=== PATIENT | male | born 1955 | race Caucasian/White ===

== ENCOUNTER → 2022-06-12 10:37 | Outpatient (CLI) | payer BC, MEDICARE, SELFPAY ==
[2022-06-12 19:37] LABS: Basophils # 0.1 K/mm3 (0-0.2); Basophils % 0.9 % (0.1-2.0); Eosinophils # 0.1 K/mm3 (0.0-0.4); Eosinophils % 1.2 % (0.1-12.0); Hematocrit 45.8 % (42.0-52.0); Hemoglobin 14.6 g/dL (14.1-18.0); Lymphocytes # 0.9 K/mm3 (0.7-4.5); Lymphocytes % 10.9 % (10-50); Mean Corpuscular HGB Conc 31.8 g/dL (31.8-35.4); Mean Corpuscular Hemoglobin 29.7 pg (27.0-31.2); Mean Corpuscular Volume 93.3 fl (80-94); Mean Platelet Volume 8.7 fl (7.4-10.4); Monocytes # 0.6 K/mm3 (0.1-1.0); Monocytes % 7.4 % (1.7-9.3); Neutrophils # 6.3 K/mm3 (1.8-7.8); Neutrophils % 79.5 % (37.0-80.0); Platelet Count 349 K/mm3 (142-424); Red Cell Distribution Width 13.9 % (11.5-17.5); White Blood Count 7.9 K/mm3 (4.8-10.8)
[2022-06-12 19:50] LABS: Blood Urea Nitrogen 20 mg/dl (9-20); Calcium 8.8 mg/dl (8.4-10.2); Carbon Dioxide 26 mmol/L (22.0-30.0); Chloride 105 mmol/L (98-107); Chol/HDL Ratio 4.2 (1-3.5); Cholesterol 135 mg/dl (140-200); Estimated Glomerular Filt Rate 75 ml/min (>60); GFR (African American) 91 ML/MIN (>60); Glucose 95 mg/dl (74-100); HDL Cholesterol 32 mg/dl (40-60); Sodium 140 mmol/L (136-145); Triglycerides 101 mg/dl (30-150); Uric Acid 4.6 mg/dl (3.5-8.5); VLDL Cholesterol 20 mg/dL (0-40)
[2022-06-12 20:36] LABS: Creatinine,Urine Random 201 mg/dL (Not Estab.); Microalbumin/Creatinine Ratio 72.6
== END ==
LOC: LAB.DROPOF 06-25 10:38
PROVIDERS: PCP Family Medicine; Visit Provider Family Medicine
DX: I10 Essential (primary) hypertension (principal); F17.200 Nicotine dependence, unspecified, uncomplicated
CPT/HCPCS: 80048; 80061; 82043; 82570; 84550; 85025

== ENCOUNTER 2022-11-25 14:09 | Emergency (ER) | payer BC, MEDICARE, SELFPAY ==
[2022-11-25 14:10] VITALS: BP 133/97; PULSE 87; RESP 16; TEMP 36.6; O2SAT 98; BMI 25.8
[2022-11-25 14:58] LABS: Microscopic, Urine URINE MICROSCOPIC (MICROSCOPIC)
[2022-11-25 15:00] VITALS: BP 173/98; PULSE 79; O2SAT 97
--- NOTE | 2022-11-25 15:02 | CT_ITS ---
FINAL REPORT TECHNIQUE: After the administration of intravenous contrast, axial images were obtained through the abdomen and pelvis by computed tomography. This study was performed with technique to keep radiation doses as low as reasonably achievable, (ALARA). Individualized dose reduction techniques using automated exposure control or adjustment of the MA and/or KV according to the patient's size were employed. CLINICAL HISTORY: LUQ pain FINDINGS: Abdomen: The lung bases demonstrate mild atelectasis. The liver is normal in size and attenuation. Gallbladder is moderately distended. The spleen is unremarkable. The adrenals are normal. The pancreas is unremarkable. The kidneys enhance appropriately. There are multiple left renal cysts measuring up to 4.4 cm. The aorta is normal in caliber. There is no free fluid or adenopathy. Pelvis: The appendix is not identified. There are no secondary signs of appendicitis. There is a moderate to large amount of stool throughout the colon. The prostate is enlarged. There is sigmoid diverticulosis without evidence of diverticulitis. The urinary bladder is unremarkable. There is no free fluid or adenopathy. IMPRESSION: Moderate to large amount of stool throughout the colon. Enlarged prostate. Reviewed, Interpreted and Dictated by Jin Gray III, MD Transcribed by Debbie Gladamez Authenticated and [facility]
[2022-11-25 15:05] LABS: Basophils # 0.1 K/mm3 (0-0.2); Basophils % 0.6 % (0.1-2.0); Eosinophils # 0.1 K/mm3 (0.0-0.4); Eosinophils % 1.1 % (0.1-12.0); Hemoglobin 13.8 g/dL (14.1-18.0); Lymphocytes # 0.8 K/mm3 (0.7-4.5); Lymphocytes % 6.4 % (10-50); Mean Corpuscular HGB Conc 32.2 g/dL (31.8-35.4); Mean Corpuscular Hemoglobin 28.8 pg (27.0-31.2); Mean Corpuscular Volume 89.4 fl (80-94); Mean Platelet Volume 7.8 fl (7.4-10.4); Monocytes # 0.7 K/mm3 (0.1-1.0); Monocytes % 5.3 % (1.7-9.3); Neutrophils % 86.5 % (37.0-80.0); Platelet Count 428 K/mm3 (142-424); Red Blood Count 4.81 M/mm3 (4.60-6.20); Red Cell Distribution Width 13.6 % (11.5-17.5); White Blood Count 12.7 K/mm3 (4.8-10.8)
[2022-11-25 15:07] LABS: Appearance,Urine CLEAR (Clear); Bilirubin,Urine Negative (Negative); Blood, Urine Negative (Negative); Color,Urine YELLOW (Yellow); Glucose,Urine (UA) Negative (Negative); Ketones,Urine Negative (Negative); Leukocyte Esterase,Urine Negative (Negative); Nitrate,Urine Negative (Negative); Protein,Urine Negative (Negative); Specific Gravity, Urine 1.015 (1.005-1.030)
[2022-11-25 15:12] LABS: MANUAL DIFFERENTIAL MANUAL DIFFERENTIAL (MANUAL DIFF)
[2022-11-25 15:18] LABS: Eosinophils % 1 % (0-3); Lymphocytes % 6 % (10-50); Neutrophils % 93 % (42-76); Platelet Estimate Normal; RBC Morphology Normal; Total Cells Counted 100
[2022-11-25 15:23] LABS: Squamous Epithelial Cell,Urine Occasional #/hpf (0-5); WBC,Urine Occasional #/hpf (0-3)
[2022-11-25 15:25] LABS: Alanine Aminotransferase 47 U/L (12-78); Albumin Level 4.5 g/dl (3.5-5.0); Albumin/Globulin Ratio 1.2 (1.1-1.8); Alkaline Phosphatase 204 U/L (38-126); Anion Gap 16.3 mEq/L (5-15); Aspartate Amino Transferase 45 U/L (17-59); Bilirubin,Total 0.8 mg/dl (0.2-1.3); Blood Urea Nitrogen 19 mg/dl (9-20); Carbon Dioxide 30 mmol/L (22.0-30.0); Chloride 101 mmol/L (98-107); Creatinine Clearance Estimated 84 mL/min (50-200); Estimated Glomerular Filt Rate 75 ml/min (>60); GFR (African American) 90 ML/MIN (>60); Globulin 3.9 g/dL (1.3-3.2); Glucose 97 mg/dl (74-100); Lipase 45 U/L (23-300); Potassium 4.3 mmoL/L (3.5-5.1); Sodium 143 mmol/L (136-145); Total Protein,Serum 8.4 g/dl (6.3-8.2)
[2022-11-25 15:30] VITALS: BP 153/88; PULSE 75; O2SAT 97
--- NOTE | 2022-11-25 15:50 | HMH.EDGENADL ---
Discharge Plan Disposition Patient Disposition: Home, Self-Care Prescriptions Prescriptions: New polyethylene glycol 3350 [Miralax] 17 gram/dose powder 17 g PO DAILY PRN (Reason: constipation) Qty: 510 0RF lactulose 10 gram/15 mL (15 mL) solution 10 g PO DAILY PRN (Reason: constipation) Qty: 473 0RF No Action tamsulosin 0.4 mg capsule 0.4 mg PO DAILY losartan 100 mg tablet 100 mg PO DAILY Referrals Follow up/Referrals: Sanchez Pascual MD [Primary Care Provider] - See instructions Activity Restrictions/Add. Instructions Additional Instructions/Restrictions: Return for worsening abdominal pain vomiting or any other concerns within 8 hours otherwise follow-up with your primary care physician within the next few days Clinical Impressions Clinical Impression: Constipation Instructions Patient Instructions: DI for Acute Abdominal Pain Discharge ED Provider: Lorenzo Raines General Adult HPI General Chief complaint: Abdominal Pain Stated complaint: LT side rib pain Time Seen by Provider: 11/25/22 14:10 Mode of Arrival: Ambulatory Source of Information: Patient Limitations: No Limitations Description of Symptoms (Recalled from ER Triage Doc. by RN): 67 yo M present to ED with c/o left sided rib pain and rash. pt states symptoms ongoing for 7 days. pt states he has had no known incident to cause pain. pt states rash began approx same time that rash began. only thing new is a flonase prescription that pt states he took for a few days then stopped History of Present Illness HPI narrative: 67-year-old male presents with left upper abdomen pain. He says the pain has been going on for 7 days as constant but worse in the mornings. No dysuria or hematuria. No vomiting or diarrhea. Pain is not associated with difficulty breathing will radiate to the chest and the back. No fever or chills. He also has had an erythematous rash over his chest legs back for the last few days as well. Related Data Home Medications Medication Instructions Recorded Confirmed losartan 100 mg tablet 100 mg PO DAILY . 11/25/22 11/25/22 tamsulosin 0.4 mg capsule 0.4 mg PO DAILY . 11/25/22 11/25/22 Previous Rx's Medication Instructions Recorded lactulose 10 gram/15 mL (15 mL) 10 g (15 mL) PO DAILY PRN 11/25/22 oral solution constipation #473 mL polyethylene glycol 3350 17 17 g PO DAILY PRN constipation 11/25/22 gram/dose oral powder (Miralax) #510 grams Allergies Allergy/AdvReac Type Severity Reaction Status Date / Time No Known Allergies Allergy Verified 11/25/22 14:30 [facility] Disclaimer: The information contained in this section may have been updated after the patient was seen, as this information can be updated by other users. Medical History HTN (hypertension) Nicotine dependence, unspecified, uncomplicated Social History Smoking Status: Current every day smoker alcohol intake: never current occupational status: employed Travel in the last 8 weeks: None ROS Obtained: Yes All systems reviewed & no additional complaints except as documented Constitutional Constitutional: Denies fatigue Eyes Eyes: Denies dry eyes ENT Ears, Nose, Mouth, and Throat: Denies dizziness and Denies dry mouth Cardiovascular Cardiovascular: Denies leg edema Respiratory Respiratory: Denies cough Gastrointestinal Gastrointestingal: Denies diarrhea Genitourinary Male Genitourinary: Denies hematuria Musculoskeletal Musculoskeletal: Denies back pain Integumentary/Breasts Skin/Breast: Denies jaundice Neurologic Neurologic: Denies dizziness Endocrine Endocrine: Denies fatigue Hematologic/Lymphatic Henatologic/Lymphatic: Denies easy bleeding Allergic/Immunologic Allergic/Immunologic: Denies urticaria Physical Exam General General appearance: alert and in no apparent distress Eye Eye exam: Presen
[2022-11-25 16:00] VITALS: BP 156/92; PULSE 80; O2SAT 97
[2022-11-25 16:30] VITALS: BP 171/102; PULSE 73; O2SAT 97
--- NOTE | 2022-11-25 16:57 | PC.NURSE ---
JAMES HOYT at discussing results and POC with pt.
[2022-11-25 17:12] VITALS: BP 182/105; PULSE 79; RESP 19; TEMP 36.7
== END 2022-11-25 17:13 | disposition home or self-care (01) ==
PROVIDERS: Emergency Provider Emergency Medicine; PCP Family Medicine
DX: R07.81 Pleurodynia (principal); R21 Rash and other nonspecific skin eruption; R10.12 Left upper quadrant pain; I10 Essential (primary) hypertension; F17.200 Nicotine dependence, unspecified, uncomplicated
CPT/HCPCS: 74177; 80053; 81001; 83690; 85007; 85025; 99284; 99285; Q9967

== ENCOUNTER → 2023-02-18 11:00 | Outpatient (CLI) | payer BC, MEDICARE, SELFPAY | PROVIDERS: PCP Nurse Practitioner; Visit Provider Nurse Practitioner | DX: M70.22 Olecranon bursitis, left elbow (principal) | CPT/HCPCS: 87070; 87205 ==

== ENCOUNTER 2024-08-10 14:25 | Outpatient (CLI) | payer OTHER, MEDICARE, SELFPAY ==
[2024-08-10 19:51] LABS: Basophils # 0.1 K/mm3 (0-0.2); Basophils % 1.3 % (0.1-2.0); Eosinophils # 0.3 K/mm3 (0.0-0.4); Eosinophils % 3.6 % (0.1-12.0); Hematocrit 38.6 % (42.0-52.0); Hemoglobin 12.6 g/dL (14.1-18.0); Lymphocytes # 1.4 K/mm3 (0.7-4.5); Lymphocytes % 18.9 % (10-50); Mean Corpuscular HGB Conc 32.6 g/dL (31.8-35.4); Mean Corpuscular Hemoglobin 29.2 pg (27.0-31.2); Mean Corpuscular Volume 89.4 fl (80-94); Mean Platelet Volume 9.2 fl (7.4-10.4); Monocytes # 0.5 K/mm3 (0.1-1.0); Monocytes % 7.2 % (1.7-9.3); Neutrophils # 5.2 K/mm3 (1.8-7.8); Neutrophils % 68.9 % (37.0-80.0); Platelet Count 485 K/mm3 (142-424); Red Blood Count 4.32 M/mm3 (4.60-6.20); Red Cell Distribution Width 13.4 % (11.5-17.5); White Blood Count 7.5 K/mm3 (4.8-10.8)
[2024-08-10 21:15] LABS: Alanine Aminotransferase 16 U/L (12-78); Albumin Level 4.3 g/dl (3.5-5.0); Albumin/Globulin Ratio 1.4 (1.1-1.8); Alkaline Phosphatase 98 U/L (38-126); Anion Gap 11.1 mEq/L (5-15); Aspartate Amino Transferase 22 U/L (17-59); Bilirubin,Total 0.3 mg/dl (0.2-1.3); Blood Urea Nitrogen 16 mg/dl (9-20); Calcium 8.8 mg/dl (8.4-10.2); Carbon Dioxide 27 mmol/L (22.0-30.0); Chloride 106 mmol/L (98-107); Cholesterol 148 mg/dl (140-200); Estimated Glomerular Filt Rate 84 ml/min (>60); GFR (African American) 102 ML/MIN (>60); Glucose 102 mg/dl (74-100); HDL Cholesterol 37 mg/dl (40-60); Potassium 4.1 mmoL/L (3.5-5.1); Sodium 140 mmol/L (136-145); Total Protein,Serum 7.3 g/dl (6.3-8.2); Triglycerides 157 mg/dl (30-150); VLDL Cholesterol 31 mg/dL (0-40)
[2024-08-10 21:25] LABS: Direct LDL Cholesterol 73.48 mg/dL (100-129)
[2024-08-10 21:48] LABS: Prostate Specific Ag Screen 5.2 ng/ml (0.0-4.0); Thyroid Stimulating Hormone 0.92 uIU/mL (0.465-4.68)
[2024-08-10 22:07] LABS: Vitamin B12 189 pg/mL (239-931)
[2024-08-10 22:25] LABS: Microalbumin/Creatinine Ratio 37.1
[2024-08-10 22:31] LABS: Creatinine,Urine Random 71 mg/dL (Not Estab.)
[2024-08-11 01:04] LABS: Hemoglobin A1C 5.6 % (4.0-6.0)
== END 2024-08-10 23:59 | disposition home or self-care (01) ==
LOC: LAB.DROPOF 08-12 10:09
PROVIDERS: PCP Nurse Practitioner; Visit Provider Nurse Practitioner
DX: I10 Essential (primary) hypertension (principal); R35.1 Nocturia
CPT/HCPCS: 80053; 80061; 82043; 82570; 82607; 83036; 84443; 85025; G0103

== ENCOUNTER 2025-01-03 15:44 | Outpatient (CLI) | payer OTHER, MEDICARE, SELFPAY ==
[2025-01-03 19:23] LABS: Hematocrit 43.1 % (42.0-52.0); Hemoglobin 14.1 g/dL (14.1-18.0); Immature Granulocytes % 0.3 %; Mean Corpuscular HGB Conc 32.7 g/dL (31.8-35.4); Mean Corpuscular Hemoglobin 28.5 pg (27.0-31.2); Mean Corpuscular Volume 87.1 fl (80-94); Nucleated Red Blood Cells % 0 %; Platelet Count 454 K/mm3 (142-424); Red Blood Count 4.95 M/mm3 (4.60-6.20); Red Cell Distribution Width-SD 45.0 fL; White Blood Count 17.6 K/mm3 (4.8-10.8)
[2025-01-03 20:02] LABS: Alanine Aminotransferase 14 U/L (12-78); Albumin Level 4.8 g/dl (3.5-5.0); Albumin/Globulin Ratio 1.5 (1.1-1.8); Alkaline Phosphatase 134 U/L (38-126); Anion Gap 14.1 mEq/L (5-15); Aspartate Amino Transferase 32 U/L (17-59); Bilirubin,Total 0.8 mg/dl (0.2-1.3); Blood Urea Nitrogen 25 mg/dl (9-20); Calcium 10.5 mg/dl (8.4-10.2); Carbon Dioxide 26 mmol/L (22.0-30.0); Chloride 102 mmol/L (98-107); Creatinine,Serum 1.30 mg/dl (0.66-1.25); Estimated Glomerular Filt Rate 55 ml/min (>60); GFR (African American) 66 ML/MIN (>60); Globulin 3.2 g/dL (1.3-3.2); Glucose 105 mg/dl (74-100); Potassium 4.1 mmoL/L (3.5-5.1); Sodium 138 mmol/L (136-145); Total Protein,Serum 8.0 g/dl (6.3-8.2)
[2025-01-03 20:17] LABS: C-Reactive Protein 32.8 mg/L (0-4)
[2025-01-03 20:31] LABS: Prostate Specific Ag, Diagnost 7.56 ng/ml (0.0-4.0)
--- OUTSIDE RECORDS SUMMARY | 2025-01-04 11:15 | XMS_ITS | Clinical Summary ---
Author Organization [facility] Address [facility] [place] [address] Care Team Providers Care Cat Cracker Operator Name Role Phone Sanchez Pascual MD Primary Care Provider [phone] Source Comments This information has been disclosed to you from confidential records protectedfrom disclosure by state law. You shall make no further disclosure of thisinformation without the specific, written, and informed release of theindividual to whom it pertains, or as otherwise permitted by law. A generalauthorization for the release of medical or other information is not sufficientfor the purposes of therelease of HIV test results or diagnoses. [id number] Allergies No known active allergies Medications losartan-hydroc hlorothiazide (HYZAAR) 100-25 mg per tablet Take 1 tablet by mouth daily. 5 Active ibuprofen (ADVIL,MOTRIN) 600 MG tablet 1 5 Active gabapentin (NEURONTIN) 600 MG tablet 3 5 Active omeprazole (PRILOSEC) 40 MG capsule Take by mouth. Acti ve aspirin 325 MG tablet Take 325 mg by mouth daily. Active acetaminophen (TYLENOL) 500 MG tablet Take 1,000 mg by mouth every 6 hours as needed for Pain. Active docusate sodium (COLACE) 100 MG capsule Take 1 capsule (100 mg total) by mouth 2 times a day. 60 capsule 0 6 Active senna (SENNA) 8.6 mg tablet Take 1 tablet by mouth daily as needed for Constipation. 30 tablet 0 6 Active atorvastatin (LIPITOR) 40 MG tablet 6 Active bacitracin-poly myxin b (POLYSPORIN) ointment Apply topically 2 times a day. 30 g 0 6 Active HYDROcodone-karla taminophen (NORCO) 5-325 mg per tabletIndicatio ns:Oropharyngea l cancer ([facility]) Take 1-2 tablets by mouth every 6 hours as needed. 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 Family History Medical History Relation Comments Coronary artery disease Father Cancer Mother Relation Status Comments Father Mother Social History Tobacco Use Types Packs/Day Years Used Date Smoking Tobacco: Every Day Cigarettes 0.3 40 Smokeless Tobacco: Never Alcohol Use Standard Drinks/Week Comments No 0 (1 standard drink = 0.6 oz pur e alcohol) Sex and Gender Information Value Date Recorded Sex Assigned at Not on file Legal Sex Male 1:40 PM EST Gender Identity Not on file Sexual Orientation Not on file Last Filed Vital Signs Vital Sign Reading Time Taken Comments Blood Pressure 114/74 11/01/2015 10:33 AM EDT Pulse 71 11/01/2015 10:33 AM EDT Temperature 36.3 C (97.3 F) 11/01/2015 10:33 AM EDT Respiratory Rate 16 11/01/2015 10:33 AM EDT Oxygen Saturation 94% 11/01/2015 10:33 AM EDT Inhaled Oxygen Concentration 94% 11/01/2015 1 0:33 AM EDT Weight 86.6 kg (191 lb) 11/01/2015 10:33 AM EDT Height 180.3 cm (5' 11 ) 11/01/2015 10:33 AM EDT Body Mass Index 26.64 11/01/2015 10:33 AM EDT Plan of Treatment Not on file Insurance Advance Directives For more information, please contact: [phone] * Full Code (Latest Code Status on File) Date Activated Date Inactivated Comments 07/13/2015 3:42 PM 07/15/2015 4:36 PM * Full Code Date Activated Date Inactivated Comments 06/16/2015 11:12 AM 06/19/2015 4:38 PM Care Teams Cat Cracker Operator Relationship Specialty Start Date End Date Sanchez Pascual MD [address] [place] [id number] PCP - General Family Medicine 05/18/15
--- OUTSIDE RECORDS SUMMARY | 2025-01-04 11:15 | XMS_ITS | Clinical Summary ---
Author Organization [facility] [place] Address [address] [address] Phone Care Team Providers Care Bilingual School Psychologist Name Role Phone Sanchez Pascual MD Primary Care Provider + [phone] Allergies No known active allergies Medications gabapentin (NEURONTIN) 600 mg Oral Tablet 04/30/2015 Acti ve ibuprofen (ADVIL;MOTRIN) 600 mg Oral Tablet 05/04/2015 Active losartan-hydroch lorothiazide (HYZAAR) 100-25 mg Oral Tablet 04/16/2015 Acti ve aspirin 325 mg Oral Tablet Take 325 mg by mouth daily. Active omeprazole (PRILOSEC) 40 mg Oral Capsule, Delayed Release(E.C.) Take 40 mg by mouth daily. Active HYDROcodone-acet aminophen (HYCET) 7.5-325mg/15 mL Oral Solution Take 10-15 mL by mouth every 4 hours as needed for Pain. 360 mL 0 06/01/2015 Active Surgical History Surgery Date Site/Laterality Comments CARDIAC DEFIBRILLATOR PLACEMENT Medical History Medical History Date Comments Hypertension Family History Medical History Relation Name Comments Cancer Brother Cancer Mother Relation Name Status Comments Brother Mother Social History Tobacco Use Types Packs/Day Years Used Date Smoking Tobacco: Every Day Alcohol Use Standard Drinks/Week Comments No 0 (1 standard drink = 0.6 oz pur e alcohol) Sex and Gender Information Value Date Recorded Sex Assigned at Not on file Legal Sex Male 9:34 PM EDT Gender Identity Not on file Sexual Orientation Not on file Obstetrics History Last Filed Vital Signs Vital Sign Reading Time Taken Comments Blood Pressure 110/79 05/10/2015 1:36 PM EST lef t arm Pulse - - Temperature - - Respiratory Rate - - Oxygen Saturation - - Inhaled Oxygen Concentration - - Weight 88.5 kg (195 lb) 05/18/2015 11:16 AM EST Height 180.3 cm (5' 11 ) 05/10/2015 1:36 PM EST Body Mass Index 27.2 05/10/2015 1:36 PM EST Plan of Treatment Health Maintenance Due Date Last Done Comments Annual Wellness Exam 1959 Hepatitis C Screening 1974 DTaP/TDaP/Td (1 - Tdap) 1975 Cologuard 2001 Colon Cancer Screening 2001 Colonoscopy 2001 FIT 2001 Sigmoidoscopy 2001 Virtual Colonography 2001 Pneumococcal Vaccine 50+ (1 of 1 - PCV) 2006 Zoster (1 of 2) 2006 COVID-19 Vaccine ( - 2023-2 5 season) 2024 Influenza Vaccine (#1) 2025 Hepatitis B Vaccine Aged Out No longe r eligible based on patient's age to complete this topic Meningococcal B Vaccine Aged Out No l onger eligible based on patient's age to complete this topic Insurance [employer] [facility] [place] [id number] Care Teams Bilingual School Psychologist Relationship Specialty Start Date End Date Sanchez Pascual MD [address] [place] [phone] PCP - General Family Medicine 05/04/15
[2025-01-05 13:14] LABS: Lyme Ab CIA Positive (Negative); Lyme Ab IgM CIA Positive (Negative)
== END 2025-01-03 23:59 | disposition home or self-care (01) ==
LOC: LAB.DROPOF 01-04 11:13
PROVIDERS: PCP Nurse Practitioner; Visit Provider Nurse Practitioner
DX: S30.861A Insect bite (nonvenomous) of abdominal wall, initial encounter (principal); W57.XXXA Bitten or stung by nonvenomous insect and other nonvenomous arthropods, initial encounter; R97.20 Elevated prostate specific antigen [PSA]; R39.11 Hesitancy of micturition
CPT/HCPCS: 80053; 84153; 85025; 85651; 86140; 86618

== ENCOUNTER 2025-01-06 17:29 | Emergency (ER) | payer OTHER, MEDICARE, SELFPAY ==
[2025-01-06 17:40] VITALS: BP 188/115; PULSE 95; RESP 18; TEMP 36.9; O2SAT 98; BMI 23.6
--- OUTSIDE RECORDS SUMMARY | 2025-01-06 17:43 | XMS_ITS | Clinical Summary ---
Author Organization [facility] [place] Address [address] [address] Phone Care Team Providers Care Hair Colorist Name Role Phone Sanchez Pascual MD Primary Care Provider + [phone] Allergies No known active allergies Medications gabapentin [...] this topic Insurance [employer] [facility] [place] [id number] Care Teams Hair Colorist Relationship Specialty Start Date End Date Sanchez Pascual MD [address] [place] [phone] PCP - General Family Medicine 05/04/15
[2025-01-06 17:47] VITALS: BP 188/115; PULSE 95; RESP 18; TEMP 36.9; O2SAT 98
--- NOTE | 2025-01-06 17:51 | ED_ITS ---
<Statement entered by Abi Astudillo DO - 01/07/25 00:00> I was consulted by the CRISTHIAN, and we discussed the complexity of problems being addressed. I approve the treatment and management plan for this patient's care in the emergency department, thus performing a substantial portion of the medical decision making. Abi Astudillo DO Discharge Plan Disposition Patient Disposition: Home, Self-Care Condition: Good Prescriptions Prescriptions: No Action losartan 100 mg tablet See Rx Instructions .ROUTE .COMPLEX Qty: 90 1RF Dose Instruction: TAKE 1 TABLET ORALLY ONCE DAILY Rx Instructions: TAKE 1 TABLET ORALLY ONCE DAILY tamsulosin 0.4 mg capsule See Rx Instructions .ROUTE .COMPLEX Qty: 90 1RF Dose Instruction: TAKE 1 CAPSULE ORALLY OCNE DAILY Rx Instructions: TAKE 1 CAPSULE ORALLY OCNE DAILY cyclobenzaprine 5 mg tablet 5 mg PO TID Qty: 90 0RF doxycycline hyclate 100 mg tablet 100 mg PO BID Qty: 42 0RF polyethylene glycol 3350 [Miralax] 17 gram/dose powder 17 g PO DAILY PRN (Reason: constipation) Qty: 510 0RF Referrals Follow up/Referrals: Randi Morales APRN [Primary Care Provider, Family Practice] - See instructions Ankur Fisher MD [Staff Physician, Urology] - See instructions Activity Restrictions/Add. Instructions Additional Instructions/Restrictions: Please return to the emergency department any worsening signs or symptoms, continue take all your medication as prescribed. Please follow-up with urologist and keep the King catheter in place until follow-up. Clinical Impressions Clinical Impression: Acute urinary retention, BPH (benign prostatic hyperplasia), King catheter in place Instructions Patient Instructions: DI for Benign Prostatic Hyperplasia, DI for Urinary Retention in Men, How to Care for Your King Catheter -- Male Print Language Print Language: Swiss Discharge ED Provider: Abi Astudillo General Adult HPI General Chief complaint: Weakness Stated complaint: Issues with tanacross disease Time Seen by Provider: 01/06/25 17:38 Mode of Arrival: Ambulatory Source of Information: Patient and Spouse Description of Symptoms (Recalled from ER Triage Doc. by RN): patient presents for lyme disease and UTI . Patient [id number] that 2 weeks ago he noticed he was bitten by a tick, didnt think anything of it and a week later went to his PCP with a stiff neck and overall not feeling well. he presented back yesterday to his PCP for generalized weakness and still not feeling well. PAtient stated he was diagnosed with lyme disease and a UTI through blood work and urine samples. patient also endorses having trouble urinating and is noticeably distended on exam. he only dribbles when he urinates. bladder scan >1903. History of Present Illness HPI narrative: 69-year-old male presents to the emergency department for 2 weeks of acute urinary retention, abdominal fullness, abdominal pain, difficulty initiating urination, denies any fever chills chest pain shortness of breath, has had episodes of nausea and vomiting as well as constipation, unsure when last bowel movement is, denies any diarrhea, denies any hematuria melena hematochezia or hematemesis, patient is a current everyday smoker, denies any alcohol or drug use, with the exception of occasional marijuana use, other past medical history is consistent with hypertension, what appears to be BPH, however patient has never been told that he has prostate issues , however his last PSA was significantly elevated, also of note patient was restarted on doxycycline 100 mg p.o. twice daily, he has been taking medication as described and just darted this yesterday, after he was diagnosed with Lyme disease , he had a positive Lyme titer as well as a tick bite, was seen by PCP yesterday because he was not feeling well , was also told he had a UTI . Initial triage vitals unremarkable. Please note that above description of symptoms, in this electronic medical record under categorization of recalled from ER triage doctor by RN are reflective of an initial nursing assessment, however, is not reflective of my full history and physical exam that was personally taken and clarified. Consequentially, this preceding description of symptoms, which may include the patient's categorized chief complaint in the EMR, do not reflect my personal clinical impression, and the ultimate description of history of present illness and patient stated complaints should be deferred to this section of the note. Unless stated otherwise or congruent with this section of the note, additional signs, symptoms, or incongruence should be interpreted as inaccurate with my clinical impression. Onset (ago): week(s) Related Data Previous Rx's ?Medication ?Instructions ?Recorded polyethylene glycol 3350 17 17 g PO DAILY PRN constipa tion 11/25/22 gram/dose oral powder (Miralax) #510 grams losartan 100 mg tablet See Rx Instructions .Route 0 08/10/24 .COMPLEX #90 tabs tamsulosin 0.4 mg capsule See Rx Instructions .Route 0 08/10/24 .COMPLEX #90 caps cyclobenzaprine 5 mg tablet 5 mg PO TID #90 tabs 12/16 doxycycline hyclate 100 mg tablet 100 mg PO BID #42 ta bs 01/05/25 Allergies Allergy/AdvReac Type Severity Reaction Status Date / Time No Known Allergies Allergy Verified 01/03/25 15:41 [facility] Disclaimer: The information contained in this section may have been updated after the patient was seen, as this information can be updated by other users. Medical History Neoplasm of uncertain behavior of scalp Screening for malignant neoplasm of colon declined (~08/10/24) Nicotine dependence, unspecified, uncomplicated HTN (hypertension) Social History (Updated 01/03/25 @ 15:41 by Vero Bravo MA) Smoking Status: Current every day smoker alcohol intake: never current occupational status: employed Travel in the last 8 weeks?: None Have you lived/traveled outside [place] in past 30 days?: No Contact w/someone who lives/traveled outside US past 30 days?: No Exposure to someone with infectious disease in past 14 days?: No Do you have a fever (greater than 100.4 F or 38 C)?: No Have you tested positive for COVID-19?: No Exposed to someone with COVID-19 in past 14 days?: No Do you have a sore throat?: No Do you have a cough?: No Do you have any weakness?: No Do you have any diarrhea?: No Are you experiencing any unusual bleeding?: No Do you have any muscle aches/pain?: No Do you have any abdominal pain?: No Are you experiencing loss of taste or smell?: No Other Medical History Have you received the Pneumonia Vaccine: No ROS Obtained: Yes All systems reviewed & no additional complaints except as documented Physical Exam General General appearance: alert and in no apparent distress Head Head exam: atraumatic and normocephalic Eye Eye exam: Present PERRL and EOMI ENT ENT exam: Present mucous membranes moist Neck Neck exam: Present normal inspection Chest Chest inspection: Present normal inspection and symmetric chest wall rise Respiratory Respiratory exam: Present normal lung sounds bilaterally; Absent respiratory distress Cardiovascular Cardiovascular exam: Present regular rate and normal rhythm Abdominal Exam Abdominal exam: Present soft, distention and tenderness; Absent guarding, rebound or rigidity Extremities Exam Extremities exam: Present normal inspection Back Exam Back exam: Present CVA tenderness (L) Neurological Exam Neurological exam: Present alert and oriented X3 Psychiatric Psychiatric exam: Present normal affect Skin Skin exam: Present warm and dry Medical Decision Making Medical Records Medical records reviewed: Yes I reviewed the patient's medical records. Screening: Per USPSTF and CDC recommendations, given the prevalence of disease in our region, it is our hospital?s policy to screen for HIV and viral Hepatitis for all patients aged 18 and over and those with ongoing risk factors. Juan Inquiry Pt receiving controlled substance: No Juan was queried for this patient: No Vital Signs: 01/06/25 17:40 01/06/25 17:47 Temperature 98.4 F 98.4 F Temperature Source Temporal Artery Scan Oral Pulse Rate 95 H Pulse Rate [Right Brachial] 95 H Respiratory Rate 18 18 Blood Pressure 188/115 H Blood Pressure [Right Arm] 188/115 H Blood Pressure Mean [Right Arm] 139 Blood Pressure Source Automatic Cuff Blood Pressure Source [Right Arm] Automatic Cuff Blood Pressure Position Supine Blood Pressure Position [Right Arm] Sitting 02 Sat by Pulse Oximetry 98 98 Oxygen Delivery Method Room Air Room Air Lab Data Lab results reviewed: Yes I reviewed the patient's lab results. Lab Results 01/06/25 17:49: Urine Color Yellow, Urine Appearance Clear, Urine pH 6.0, Ur Specific [place] 1.020, Urine Protein Negative, Urine Glucose (UA) Negative, Urine Ketones Negative, Urine Blood Negative, Urine Nitrate Negative, Urine Bilirubin Negative, Urine Urobilinogen 0.2, Ur Leukocyte Esterase Negative, Urine RBC 3-5, Urine WBC 5-10, Ur Squamous Epith Cells None, Urine Bacteria Trace 01/06/25 19:19: WBC 15.5 H, RBC 4.08 L, Hgb 12.0 L, Hct 35.4 L, MCV 86.8, MCH 29.4, MCHC 33.9, RDW 13.8, Plt Count 378, MPV 9.1, Neut % (Auto) 91.5 H, Lymph % (Auto) 3.8 L, [place] % (Auto) 3.9, Eos % (Auto) 0.0 L, Baso % (Auto) 0.3, Neut # (Auto) 14.1 H, Lymph # (Auto) 0.6 L, [place] # (Auto) 0.6, Eos # (Auto) 0.0, Baso # (Auto) 0.0, Sodium 137, Potassium 4.2, Chloride 102, Carbon Dioxide 26, Anion Gap 13.2, BUN 34 H, Creatinine 1.20, Estimated Creat Clear 62, Estimated GFR 60, Est GFR ( Amer) 73, Glucose 121 H, Calcium 9.3, Total Bilirubin 0.8, AST 30, ALT 14, Alkaline Phosphatase 115, Total Protein 7.9, Albumin 4.4, Globulin 3.5 H, Albumin/Globulin Ratio 1.3 01/06/25 19:19 01/06/25 19:19 Orders (Tests/Meds): ED MEDICATIONS Discontinued Medications Generic Name Dose Route Start Last Admin Trade Name Freq PRN Reason Stop Dose Admin Iopamidol 75 ml 01/06/25 20:15 01/06/25 20:16 Iopamidol-370 (76%);100ml Bottle IV 01/06/25 20:16 75 ml ONCE ONE Administration Sodium Chloride 10 ml 01/06/25 20:15 01/06/25 20:16 Sodium Chloride 0.9% 10ml Syr (Rad Only) IV 01/06/25 20:16 10 ml ONCE ONE Administration ORDERS Category Date Time Status CT abdomen pelvis w con Stat Cat Scan 01/06/25 17:52 Completed Complete Blood Count Auto Diff Stat Lab 01/06/25 19:19 Completed Comprehensive Metabolic Panel Stat Lab 01/06/25 19:19 Completed Urinalysis and Microscopic Stat Lab 01/06/25 17:49 Completed Medical Decision Narrative: 69-year-old male presents the emergency department with urinary retention abdominal pain, nausea vomiting, 2 weeks, differential diagnose include but not limited to bowel obstruction, constipation, urinary outflow obstruction, BPH, malignancy, acute UTI, acute pyelonephritis, nephrolithiasis, ureterolithiasis, acute kidney injury, among others. I discussed this patient's case with the attending physician Will obtain base, laboratory studies, urinalysis, bladder scan, CT and pelvis with contrast, patient had over 1903 and urinary bladder, thus will anchor King. UA is unremarkable, negative nitrites, negative leukocyte esterase, trace bacteria. CBC is noted for mild leukocytosis 15.5, erythrocyte pi?a at 4.08, hemoglobin is decreased to 12, hematocrit is decreased 35.4, otherwise unremarkable CBC, patient's leukocytosis is improved from yesterday. BUN is elevated at 34, otherwise unremarkable CMP. Reviewed the patient's CT and pelvis with contrast along the corresponding radiologic report, bilateral mild hydroureter without nephro ureterolithiasis or obvious obstructive mass, with enlarged prostate correlate for symptoms of prostatism, and secondary bladder outlet obstruction, indeterminate hepatic hypodensity not previously conspicuous although possibly representing cyst consider nonurgent ultrasound confirmation. I discussed the results with the patient the bedside, patient had near completion/resolution of his symptomatology and urinary retention with King catheter placement, patient will need to follow-up with urology, patient tells me he has follow-up slated for next Friday with urology, will keep King catheter and until follow-up, for acute urinary retention most likely in the setting of BPH. Patient will continue all medication as prescribed, such as doxycycline, and tamsulosin, patient was given strict ED return precautions and generalized King care, patient voiced understanding and agreed with the current treatment plan/discharge plan. Critical Care Critical Care Time Critical Care Time: No
--- NOTE | 2025-01-06 17:52 | CT_ITS ---
PROCEDURE INFORMATION: Exam: CT Abdomen And Pelvis With Contrast Exam date and time: 01/06/2025 8:17 PM Age: 69 years old Clinical indication: Abdominal pain; Additional info: Abdominal pain, urinary retention TECHNIQUE: Imaging protocol: Computed tomography of the abdomen and pelvis with contrast. Radiation optimization: All CT scans at this facility use at least one of these dose optimization techniques: automated exposure control; mA and/or kV adjustment per patient size (includes targeted exams where dose is matched to clinical indication); or iterative reconstruction. Contrast material: ISOVUE; Contrast volume: 75 ml; Contrast route: IV; COMPARISON: CT ABDOMEN PELVIS W CON 11/25/2022 4:14 PM FINDINGS: Tubes, catheters and devices: Decompressed urinary bladder with catheter in place. Liver: Indeterminate hypodensity in mid right liver lobe measuring 0.73 not previously conspicuous. No mass. Gallbladder and biliary ducts: Unremarkable. No calcified stones. No ductal dilation. Pancreas: Unremarkable. No ductal dilation. Spleen: Unremarkable. No splenomegaly. Adrenal glands: Normal. No mass. Kidneys and ureters: Bilateral hydroureter. No nephroureterolithiasis. Stable bilateral cysts. Stomach and bowel: Nonobstructive pattern. Appendix: No evidence of appendicitis. Intraperitoneal space: Unremarkable. No free air. No significant fluid collection. Vasculature: Atherosclerotic calcification of aortoiliac arteries without aneurysm. Lymph nodes: Unremarkable. No enlarged lymph nodes. Urinary bladder: Unremarkable as visualized. Reproductive: Enlarged prostate. Bones/joints: Unremarkable. No acute fracture. Soft tissues: Unremarkable. IMPRESSION: 1. Bilateral mild hydroureter without nephroureterolithiasis or obvious obstructive mass. With enlarged prostate, correlate for symptoms of prostatism and secondary bladder outlet obstruction. 2. Indeterminate hepatic hypodensity not previously conspicuous. Although possibly representing cyst, consider nonurgent ultrasound for confirmation.
[2025-01-06 17:57] LABS: Microscopic, Urine URINE MICROSCOPIC (MICROSCOPIC)
[2025-01-06 18:01] LABS: Bilirubin,Urine Negative (Negative); Color,Urine YELLOW (Yellow); Glucose,Urine (UA) Negative (Negative); Ketones,Urine Negative (Negative); Leukocyte Esterase,Urine Negative (Negative); PH,Urine 6.0 (5.0-8.5); Protein,Urine Negative (Negative); Specific Gravity, Urine 1.020 (1.005-1.030); Urobilinogen,Urine 0.2 EU/dl (0.2)
--- NOTE | 2025-01-06 18:10 | PC.NURSE ---
comer catheter inserted by [employer] KE[employer] student. Pt drained off 1200cc. Comer catheter clamped.
[2025-01-06 18:12] LABS: Bacteria,Urine Trace /lpf
--- NOTE | 2025-01-06 18:24 | PC.NURSE ---
comer unclamped, drained more, and reclamped at this time
--- NOTE | 2025-01-06 19:06 | PC.NURSE ---
1840- souleymane unclamped, patient endorses relief.
[2025-01-06 19:26] LABS: Hematocrit 35.4 % (42.0-52.0); Hemoglobin 12.0 g/dL (14.1-18.0); Immature Granulocytes % 0.5 %; Mean Corpuscular HGB Conc 33.9 g/dL (31.8-35.4); Mean Corpuscular Hemoglobin 29.4 pg (27.0-31.2); Mean Corpuscular Volume 86.8 fl (80-94); Nucleated Red Blood Cells % 0 %; Platelet Count 378 K/mm3 (142-424); Red Blood Count 4.08 M/mm3 (4.60-6.20); Red Cell Distribution Width-SD 43.7 fL; White Blood Count 15.5 K/mm3 (4.8-10.8)
[2025-01-06 19:36] LABS: Albumin Level 4.4 g/dl (3.5-5.0); Chloride 102 mmol/L (98-107); Potassium 4.2 mmoL/L (3.5-5.1); Sodium 137 mmol/L (136-145)
[2025-01-06 19:39] LABS: Alanine Aminotransferase 14 U/L (12-78); Albumin/Globulin Ratio 1.3 (1.1-1.8); Alkaline Phosphatase 115 U/L (38-126); Anion Gap 13.2 mEq/L (5-15); Aspartate Amino Transferase 30 U/L (17-59); Bilirubin,Total 0.8 mg/dl (0.2-1.3); Blood Urea Nitrogen 34 mg/dl (9-20); Calcium 9.3 mg/dl (8.4-10.2); Carbon Dioxide 26 mmol/L (22.0-30.0); Creatinine Clearance Estimated 62 mL/min (50-200); Creatinine,Serum 1.20 mg/dl (0.66-1.25); Estimated Glomerular Filt Rate 60 ml/min (>60); GFR (African American) 73 ML/MIN (>60); Globulin 3.5 g/dL (1.3-3.2); Glucose 121 mg/dl (74-100); Total Protein,Serum 7.9 g/dl (6.3-8.2)
[2025-01-06] MEDS: IOPAMIDOL-370 (76%);100ML BOTTLE 75 ML IV (20:16)
[2025-01-06] MEDS: SODIUM CHLORIDE 0.9% 10ML SYR (RAD ONLY) 10 ML IV (20:16)
--- NOTE | 2025-01-06 21:16 | PC.NURSE ---
[employer] plant supervisor called to request foly leg bag to be sent down.
[2025-01-06 21:38] VITALS: BP 195/105; PULSE 90; RESP 20; TEMP 36.8; O2SAT 97
== END 2025-01-06 21:39 | disposition home or self-care (01) ==
PROVIDERS: Physician Assistant; Emergency Provider Student in an Organized Health Care Education/Training Program; PCP Nurse Practitioner
DX: R33.8 Other retention of urine (principal); N13.4 Hydroureter; N40.0 Benign prostatic hyperplasia without lower urinary tract symptoms; F17.210 Nicotine dependence, cigarettes, uncomplicated; I10 Essential (primary) hypertension
CPT/HCPCS: 51702; 51798; 74177; 80053; 81001; 85025; 99284; Q9967

== ENCOUNTER 2025-01-26 14:22 | Outpatient (CLI) | payer OTHER, SELFPAY ==
--- OUTSIDE RECORDS SUMMARY | 2025-01-21 16:00 | XMS_ITS | Encounter Summary ---
Author Organization [place] [address] Care Team Providers Care Child Development Professor Name Role Phone Sanchez Pascual MD Primary Care Provider [phone] Reason for Referral * MRI/CAT Scan (Emergency) - Closed Specialty Diagnoses / Procedures Referred By Fide reed Referred To Contact Radiology Diagnoses Neuromuscular dysfunction of bladder Cauda equina syndrome (HCC) Procedures MRI LUMBAR SPINE W WO CONTRAST Randi Morales APRN [address] [facility] [address] [place] [address] Phone: tel: fax: Referral ID Status Reason Start Date Expiration Date Visits Re quested Visits Authorized [id number] Closed 01/19/2025 01/19/2026 1 1 Reason for Visit * MRI/CAT Scan (Emergency) - Closed Specialty Diagnoses / Procedures Referred By Fide reed Referred To Contact Radiology Diagnoses Neuromuscular dysfunction of bladder Cauda equina syndrome (HCC) Procedures MRI LUMBAR SPINE W WO CONTRAST Randi Morales THEATRE INSTRUCTOR [address] [facility] [address] [place] [address] Phone: tel: fax: Referral ID Status Reason Start Date Expiration Date Visits Re quested Visits Authorized [id number] Closed 01/19/2025 01/19/2026 1 1 Encounter Details Date Type Department Care Team (Latest Contact Info) Description 01/21/2025 4:00 PM EDT - 01/21/2025 11:59 PM EDT Hospital Encounter [facility] MRI [address] [place] [address] Randi Morales, THEATRE INSTRUCTOR [address] [place] [...] PM CLINICAL HISTORY: N31.9-Neuromuscular dysfunction of bladder, hxzlrnqjfxj-DSF-86-CM G83.4-Cauda equina syndrome (HCC)-ICD-10-CM. COMPARISON: None. PROCEDURE [...] PM CLINICAL HISTORY: N31.9-Neuromuscular dysfunction of bladder, cwilyyjiwyf-OKY-86-CM G83.4-Cauda equina syndrome (HCC)-ICD-10-CM. COMPARISON: None. PROCEDURE [...] office of the ordering clinician. Randi Morales THEATRE INSTRUCTOR IMG MRI ORDERABLES Final Resul t documented [...] mL documented in this encounter Care Teams Child Development Professor Relationship Specialty Start Date End Date Sanchez Pascual MD [address] [place] [facility] [address] [place] [phone] PCP - General Family Medicine 05/04/15 documented as of this encounter
--- OUTSIDE RECORDS SUMMARY | 2025-01-26 14:24 | XMS_ITS | Clinical Summary ---
Author Organization [facility] Address [facility] [place] [address] Care Team Providers Care Carpenter Streetcar Name Role Phone Sanchez Pascual MD Primary Care Provider [phone] Source Comments This information has been disclosed [...] therelease of HIV test results or diagnoses. 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 [place] [id number] PCP - General Family Medicine 05/18/15
--- OUTSIDE RECORDS SUMMARY | 2025-01-26 14:24 | XMS_ITS | Clinical Summary ---
Author Organization [facility] [place] Address [address] [address] Phone Care Team Providers Care Manager Ui Name Role Phone Sanchez Pascual MD Primary Care Provider [phone] Allergies No known active allergies Medications gabapentin [...] for Pain. 360 mL 0 06/01/2015 Active Encounters Date Type Department Care Team Description 01/21/2025 4:00 PM EDT - 01/21/2025 11:59 PM EDT Hospital Encounter [facility] MRI [address] [place] [address] Randi Morales APRN Neuromuscular dysfunction of bladder; Cauda equina syndrome (HCC) Discharge Disposition: Home or Self Care from Last 3 Months Surgical History Surgery Date Site/Laterality Comments CARDIAC [...] Zoster (1 of 2) 2006 COVID-19 Vaccine (3 2023-2 5 season) 2024 09/18/2020, 08/21/2020 Influenza Vaccine (#1) 2025 06/07/2023 Hepatitis B Vaccine Aged Out No longe r eligible based on patient's age to complete this topic Meningococcal B Vaccine Aged Out No l onger eligible based on patient's age to complete this topic Procedures Procedure Name Priority Date/Time Associated Diagnosis Comments MRI LUMBAR SPINE W WO CONTRAST STAT 01/21/2025 5:08 PM EDT Neuromuscular dysfunction of bladder Cauda equina syndrome (HCC) from Last 3 Months Results * MRI LUMBAR SPINE W WO [...] PM CLINICAL HISTORY: N31.9-Neuromuscular dysfunction of bladder, [id number]-XCU-56-CM G83.4-Cauda equina syndrome (HCC)-ICD-10-CM. COMPARISON: None. PROCEDURE [...] PM CLINICAL HISTORY: N31.9-Neuromuscular dysfunction of bladder, [id number]-GOR-61-CM G83.4-Cauda equina syndrome (HCC)-ICD-10-CM. COMPARISON: None. PROCEDURE [...] office of the ordering clinician. Randi Morales APRN IMG MRI ORDERABLES Final Resul t from Last 3 Months Insurance [facility] CHOICE PLUS [id number] Care Teams Manager Ui Relationship Specialty Start Date End Date Sanchez Pascual MD [address] [place] [id number] PCP - General Family Medicine 05/04/15
[2025-01-26 15:41] LABS: Hematocrit 37.5 % (42.0-52.0); Hemoglobin 12.6 g/dL (14.1-18.0); Immature Granulocytes % 0.7 %; Mean Corpuscular HGB Conc 33.6 g/dL (31.8-35.4); Mean Corpuscular Hemoglobin 29.6 pg (27.0-31.2); Mean Corpuscular Volume 88.0 fl (80-94); Nucleated Red Blood Cells % 0 %; Platelet Count 463 K/mm3 (142-424); Red Blood Count 4.26 M/mm3 (4.60-6.20); Red Cell Distribution Width-SD 44.4 fL; White Blood Count 11.4 K/mm3 (4.8-10.8)
[2025-01-26 18:29] LABS: Albumin Level 4.2 g/dl (3.5-5.0); Chloride 101 mmol/L (98-107); Potassium 5.3 mmoL/L (3.5-5.1); Sodium 136 mmol/L (136-145)
[2025-01-26 18:32] LABS: Alanine Aminotransferase 14 U/L (12-78); Albumin/Globulin Ratio 1.5 (1.1-1.8); Alkaline Phosphatase 127 U/L (38-126); Anion Gap 12.3 mEq/L (5-15); Aspartate Amino Transferase 43 U/L (17-59); Bilirubin,Total 0.6 mg/dl (0.2-1.3); Blood Urea Nitrogen 41 mg/dl (9-20); Calcium 10.0 mg/dl (8.4-10.2); Carbon Dioxide 28 mmol/L (22.0-30.0); Creatinine,Serum 1.10 mg/dl (0.66-1.25); Estimated Glomerular Filt Rate 67 ml/min (>60); GFR (African American) 81 ML/MIN (>60); Globulin 2.8 g/dL (1.3-3.2); Glucose 97 mg/dl (74-100); Total Protein,Serum 7.0 g/dl (6.3-8.2)
[2025-01-27 10:19] LABS: Iron 80 ug/dL (49-181)
[2025-01-27 10:29] LABS: Total Iron Binding Capacity 242 ug/dL (261-462)
[2025-01-27 10:56] LABS: Ferritin 145 ng/ml (17.9-464)
== END 2025-01-26 23:59 | disposition home or self-care (01) ==
LOC: LAB 14:22
PROVIDERS: PCP Nurse Practitioner; Visit Provider Internal Medicine Medical Oncology
DX: N40.0 Benign prostatic hyperplasia without lower urinary tract symptoms (principal); D49.89 Neoplasm of unspecified behavior of other specified sites
CPT/HCPCS: 36415; 80053; 82728; 83540; 83550; 85025

== ENCOUNTER 2025-02-01 13:26 | Emergency (ER) | payer OTHER, SELFPAY ==
--- OUTSIDE RECORDS SUMMARY | 2025-01-21 16:00 | XMS_ITS | Encounter Summary ---
Author Organization [place] [address] Care Team Providers Care Industrial Relations Analyst Name Role Phone Sanchez Pascual MD Primary Care Provider [phone] Reason for Referral * MRI/CAT Scan (Emergency) - Closed Specialty Diagnoses / Procedures Referred By Fide reed Referred To Contact Radiology Diagnoses Neuromuscular dysfunction of bladder Cauda equina syndrome (HCC) Procedures MRI LUMBAR SPINE W WO CONTRAST Randi Morales APRN [address] [facility] [address] [place] [address] Phone: tel: fax: Referral ID Status Reason Start Date Expiration Date Visits Re quested Visits Authorized [id number] Closed 01/19/2025 01/19/2026 1 1 Reason for Visit * MRI/CAT Scan (Emergency) - Closed Specialty Diagnoses / Procedures Referred By Fide reed Referred To Contact Radiology Diagnoses Neuromuscular dysfunction of bladder Cauda equina syndrome (HCC) Procedures MRI LUMBAR SPINE W WO CONTRAST Randi Morales AGRICULTURAL EQUIPMENT MECHANIC [address] [facility] [address] [place] [address] Phone: tel: fax: Referral ID Status Reason Start Date Expiration Date Visits Re quested Visits Authorized [id number] Closed 01/19/2025 01/19/2026 1 1 Encounter Details Date Type Department Care Team (Latest Contact Info) Description 01/21/2025 4:00 PM EDT - 01/21/2025 11:59 PM EDT Hospital Encounter [facility] MRI [address] [place] [address] Randi Morales, AGRICULTURAL EQUIPMENT MECHANIC [address] [place] [...] PM CLINICAL HISTORY: N31.9-Neuromuscular dysfunction of bladder, rprdhrtrfrs-TLY-67-CM G83.4-Cauda equina syndrome (HCC)-ICD-10-CM. COMPARISON: None. PROCEDURE [...] PM CLINICAL HISTORY: N31.9-Neuromuscular dysfunction of bladder, xztyrfgozlb-MJK-85-CM G83.4-Cauda equina syndrome (HCC)-ICD-10-CM. COMPARISON: None. PROCEDURE [...] office of the ordering clinician. Randi Morales AGRICULTURAL EQUIPMENT MECHANIC IMG MRI ORDERABLES Final Resul t documented [...] mL documented in this encounter Care Teams Industrial Relations Analyst Relationship Specialty Start Date End Date Sanchez Pascual MD [address] [place] [facility] [address] [place] [phone] PCP - General Family Medicine 05/04/15 documented as of this encounter
[2025-02-01] VITALS (10 sets, daily range): BP systolic 108–159; BP diastolic 75–106; PULSE 90–91; RESP 13–24; TEMP 36.8; O2SAT 96–98
--- NOTE | 2025-02-01 13:32 | ED_ITS ---
<Statement entered by Claude Kwok MD - 02/03/25 07:20> I was consulted by the CRISTHIAN, and we discussed the complexity of the problems being addressed. I approved the treatment and management plan for this patient's care in the emergency department, thus performing a substantive portion of the medical decision making. Claude Kwok MD, CHADWICK, FACEP Discharge Plan Disposition Patient Disposition: Home, Self-Care Condition: Good Prescriptions Prescriptions: New magnesium citrate [OneLAX Magnesium Citrate] Solution 100 ml PO DAILY PRN (Reason: constipation) Qty: 296 0RF No Action cyclobenzaprine 5 mg tablet 5 mg PO Patient Comments: TAKE 1 TABLET BY MOUTH THREE TIMES A DAY tamsulosin 0.4 mg capsule 0.4 mg .ROUTE Q24H 90 Days Qty: 90 1RF Rx Instructions: Take 1/2 hour after same meal daily. ondansetron HCl 4 mg tablet 4 mg PO Q8H PRN (Reason: nausea and vomiting) Qty: 30 1RF hydrocodone-acetaminophen 5-325 mg tablet See Rx Instructions PO Q6H PRN (Reason: pain) Qty: 60 0RF Rx Instructions: 1-2 orally every 6 hours PRN; losartan 100 mg tablet See Rx Instructions .ROUTE .COMPLEX Qty: 90 1RF Dose Instruction: TAKE 1 TABLET ORALLY ONCE DAILY Rx Instructions: TAKE 1 TABLET ORALLY ONCE DAILY doxycycline hyclate 100 mg tablet 100 mg PO BID Qty: 42 0RF Referrals Follow up/Referrals: Randi Morales APRN [Primary Care Provider, Family Practice] - See instructions Ankur Fisher MD [Staff Physician, Urology] - See instructions Kevin Iniguez MD [Staff Physician, Oncology] - See instructions Activity Restrictions/Add. Instructions Additional Instructions/Restrictions: Please utilize mag citrate if your MiraLAX does not relieve your constipation, please continue take all your medication as prescribed, please follow-up with urologist and hematology oncologist as above for your ongoing mass in your bladder. Please return to the emergency department with any worsening signs or symptoms. Clinical Impressions Clinical Impression: Constipation, Neurogenic bladder, Cancer with unknown primary site Instructions Patient Instructions: DI for Acute Abdominal Pain, Constipation Print Language Print Language: Armenian Discharge ED Provider: Claude Kwok General Adult [facility] General Chief complaint: Abdominal Pain Stated complaint: ABD Pain Time Seen by Provider: 02/01/25 13:32 Mode of Arrival: EMS Source of Information: Patient Limitations: No Limitations History of Present Illness HPI narrative: 69-year-old male presents the emergency department via EMS with 2-week history of constipation,/decreased bowel movements, patient tells me has not had a good formed bowel movement in 2 weeks , he states he was straining , last night, only got a little bit of liquid , out, endorse abdominal pain, nausea no vomiting, denies any obstipation, denies any fever chills chest pain shortness of breath, denies any melena hematochezia hematemesis or hematuria, denies urinary type symptomatology, does have some urinary retention and frequency at times, has been following with urologist, was recently seen in the emergency department for BPH acute urinary retention with King catheter in place, since then he is followed up with urology and he currently self caths . 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 Initial triage vitals unremarkable. Please note that above description of symptoms, in this electronic medical record under categorization of recalled from ER triage doctor by RN are reflective of an initial nursing assessment, however, is not reflective of my full history and physical exam that was personally taken and clarified. Consequentially, this preceding description of symptoms, which may include the patient's categorized chief complaint in the EMR, do not reflect my personal clinical impression, and the ultimate description of history of present illness and patient stated complaints should be deferred to this section of the note. Unless stated otherwise or congruent with this section of the note, additional signs, symptoms, or incongruence should be interpreted as inaccurate with my clinical impression. Onset (ago): week(s) Related Data Home Medications ?Medication ?Instructions ?Recorded ?Confirmed cyclobenzaprine 5 mg tablet 5 mg PO 01/24/25 01/26/25 Previous Rx's ?Medication ?Instructions ?Recorded losartan 100 mg tablet See Rx Instructions .Route 0 08/10/24 .COMPLEX #90 tabs doxycycline hyclate 100 mg tablet 100 mg PO BID #42 ta bs 01/05/25 ondansetron HCl 4 mg tablet 4 mg PO Q8H PRN nausea and 01/18/25 vomiting #30 tabs tamsulosin 0.4 mg capsule 0.4 mg .Route Q24H 90 days # 90 caps 01/24/25 hydrocodone 5 mg-acetaminophen 325 See Rx Instructions PO Q6H PRN 01/26/25 mg tablet pain #60 tabs magnesium citrate (OneLAX 100 ml PO DAILY PRN constipa tion 02/01/25 Magnesium Citrate oral solution) #296 mL Allergies Allergy/AdvReac Type Severity Reaction Status Date / Time No Known Allergies Allergy Verified 01/26/25 13:38 [facility] Disclaimer: The information contained in this section may have been updated after the patient was seen, as this information can be updated by other users. Medical History Neoplasm of pelvis Personal history of smoking Unintentional weight loss Neoplasm of uncertain behavior of scalp Screening for malignant neoplasm of colon declined (~08/10/24) Nicotine dependence, unspecified, uncomplicated HTN (hypertension) Social History Smoking Status: Current every day smoker tobacco type: cigarettes packs per day: 1 alcohol intake: never current occupational status: employed Travel in the last 8 weeks?: None Have you lived/traveled outside US in past 30 days?: No Contact w/someone who lives/traveled outside US past 30 days?: No Exposure to someone with infectious disease in past 14 days?: No Do you have a fever (greater than 100.4 F or 38 C)?: No Have you tested positive for COVID-19?: No Exposed to someone with COVID-19 in past 14 days?: No Do you have a sore throat?: No Do you have a cough?: No Do you have any weakness?: No Do you have any diarrhea?: No Are you experiencing any unusual bleeding?: No Do you have any muscle aches/pain?: No Do you have any abdominal pain?: No Are you experiencing loss of taste or smell?: No Other Medical History Have you received the Pneumonia Vaccine: No ROS Obtained: Yes All systems reviewed & no additional complaints except as documented Physical Exam General General appearance: alert and in no apparent distress Head Head exam: atraumatic and normocephalic Eye Eye exam: Present PERRL and EOMI ENT ENT exam: Present mucous membranes moist Neck Neck exam: Present normal inspection Chest Chest inspection: Present normal inspection and symmetric chest wall rise Respiratory Respiratory exam: Present normal lung sounds bilaterally; Absent respiratory distress Cardiovascular Cardiovascular exam: Present regular rate and normal rhythm Abdominal Exam Abdominal exam: Present soft and tenderness; Absent distention, guarding or rebound Abdominal tenderness: Present diffuse and mild Rectal Exam Rectal exam: Present normal inspection and hemorrhoids Extremities Exam Extremities exam: Present normal inspection Neurological Exam Neurological exam: Present alert and oriented X3 Psychiatric Psychiatric exam: Present normal affect Skin Skin exam: Present warm and dry Medical Decision Making Medical Records Medical records reviewed: Yes I reviewed the patient's medical records. Screening: Per USPSTF and CDC recommendations, given the prevalence of disease in our region, it is our hospital?s policy to screen for HIV and viral Hepatitis for all patients aged 18 and over and those with ongoing risk factors. Juan Inquiry Pt receiving controlled substance: No Juan was queried for this patient: No Vital Signs: 02/01/25 13:30 02/01/25 13:41 02/01/25 14:00 Temperature 98.3 F 98.3 F Temperature Source Oral Oral Pulse Rate 91 H Pulse Rate [Right] 91 H Respiratory Rate 15 15 20 Blood Pressure 141/81 H 108/75 L Blood Pressure [Right Arm] 141/81 H Blood Pressure Mean [Right Arm] 101 Blood Pressure Source Automatic Cuff Blood Pressure Source [Right Arm] Automatic Cuff Blood Pressure Position Supine Blood Pressure Position [Right Arm] Supine 02 Sat by Pulse Oximetry 96 96 96 Oxygen Delivery Method Room Air Room Air 02/01/25 14:30 02/01/25 15:00 02/01/25 16:00 Temperature Temperature Source Pulse Rate Pulse Rate [Right] Respiratory Rate 24 23 22 Blood Pressure 149/82 H 156/106 H 150/81 H Blood Pressure [Right Arm] Blood Pressure Mean [Right Arm] Blood Pressure Source Blood Pressure Source [Right Arm] Blood Pressure Position Blood Pressure Position [Right Arm] 02 Sat by Pulse Oximetry Oxygen Delivery Method 02/01/25 16:30 02/01/25 17:00 02/01/25 17:30 Temperature Temperature Source Pulse Rate Pulse Rate [Right] Respiratory Rate 18 15 15 Blood Pressure 149/90 H 154/99 H 159/92 H Blood Pressure [Right Arm] Blood Pressure Mean [Right Arm] Blood Pressure Source Blood Pressure Source [Right Arm] Blood Pressure Position Blood Pressure Position [Right Arm] 02 Sat by Pulse Oximetry Oxygen Delivery Method Lab Data Lab results reviewed: Yes I reviewed the patient's lab results. Lab Results 02/01/25 13:28: WBC 15.2 H, RBC 4.07 L, Hgb 12.2 L, Hct 35.1 L, MCV 86.2, MCH 30.0, MCHC 34.8, RDW 13.6, Plt Count 452 H, MPV 9.3, Neut % (Auto) 88.7 H, Lymph % (Auto) 5.1 L, [place] % (Auto) 5.2, Eos % (Auto) 0.3, Baso % (Auto) 0.2, Neut # (Auto) 13.5 H, Lymph # (Auto) 0.8, [place] # (Auto) 0.8, Eos # (Auto) 0.0, Baso # (Auto) 0.0, Sodium 132 L, Potassium 3.8, Chloride 95 L, Carbon Dioxide 26, Anion Gap 14.8, BUN 31 H, Creatinine 1.10, Estimated Creat Clear 58, Estimated GFR 67, Est GFR ( Amer) 81, Glucose 95, Lactate 1.5, Calcium 9.2, Total Bilirubin 1.3, AST 58, ALT 32, Alkaline Phosphatase 155 H, Total Protein 7.2, Albumin 4.3, Globulin 2.9, Albumin/Globulin Ratio 1.5, Lipase 105, HCV Ab JOSHUA w/Rflx PCR Qn Negative, HIV Ag/Ab Combo Qual Negative 02/01/25 14:07: Urine Color Yellow, Urine Appearance Cloudy, Urine pH 5.5, Ur Specific [place] 1.025, Urine Protein 1+ A, Urine Glucose (UA) Negative, Urine Ketones 1+, Urine Blood 3+ A, Urine Nitrate Negative, Urine Bilirubin 1+ A, Urine Urobilinogen 1.0, Ur Leukocyte Esterase 2+ A, Urine RBC 50-100, Urine WBC 10-20, Ur Squamous Epith Cells None, Urine Bacteria Trace 02/01/25 13:28 02/01/25 13:28 Orders (Tests/Meds): ED MEDICATIONS Discontinued Medications Generic Name Dose Route Start Last Admin Trade Name Freq PRN Reason Stop Dose Admin Lactated Ringer's 1,000 mls @ 999 mls/hr 02/01/25 13:41 02/01/25 14:59 Lactated Ringer's 1000 Ml Bag IV 02/01/25 14:41 Infused .Q1H1M ONE Infusion Iopamidol 75 ml 02/01/25 15:34 02/01/25 15:35 Iopamidol-370 (76%);100ml Bottle IV 02/01/25 15:35 75 ml ONCE ONE Administration Mineral Oil 133 ml 02/01/25 16:56 Mineral Oil Enema 133ml RC 02/01/25 16:57 ONCE ONE Sodium Chloride 10 ml 02/01/25 15:34 02/01/25 15:35 Sodium Chloride 0.9% 10ml Syr (Rad Only) IV 02/01/25 15:35 10 ml ONCE ONE Administration Sodium Phosphate 133 ml 02/01/25 16:56 02/01/25 17:35 Sodium Phos/Biphosphate Fleet 133ml Enema RC 02/01/25 16:57 133 ml ONCE ONE Administration ORDERS Category Date Time Status CT abdomen pelvis w con Stat Cat Scan 02/01/25 13:40 Completed Complete Blood Count Auto Diff Stat Lab 02/01/25 13:28 Completed Comprehensive Metabolic Panel Stat Lab 02/01/25 13:28 Completed HIV Combo Stat Lab 02/01/25 13:28 Completed Hepatitis C Ab Qual. W/ RFX Stat Lab 02/01/25 13:28 Completed Lactic Acid Stat Lab 02/01/25 13:28 Completed Lipase Stat Lab 02/01/25 13:28 Completed Urinalysis and Microscopic Stat Lab 02/01/25 14:07 Completed Urine Culture Stat Micro 02/01/25 14:07 Received Medical Decision Narrative: 69-year-old male presents the emergency department with abdominal pain, constipated for 2 weeks, nausea no vomiting, differential diagnose include but not limited to constipation, bowel obstruction, colitis, ileitis, ileus, acute urinary retention, acute UTI, urinary outflow obstruction, malignancy, among others. I discussed this patient's case with the attending physician Dr. Kwok Will obtain basic laboratory studies, CT abdomen pelvis with contrast, will give 1 L LR IV, UA lipase lactic acid level. CBC is notable for leukocytosis of 15.2, hemoglobin hematocrit 12.2/35.1, thrombocytosis 452 otherwise unremarkable CBC. No lactic acidosis. Mild hyponatremia noted at 132 ALP is mildly evaded at 155 lipase within normal limits UA is notable for 1+ proteinuria, 3+ hematuria negative nitrites 1+ bilirubin and 2+ leukocyte Estrace. Microscopic analysis of the patient's urine is notable for 50-100 RBCs 10-20 WBCs no squamous epithelial cells trace bacteria. CMP is notable for elevated BUN at 31, otherwise unremarkable CMP I reviewed the patient's CT abdomen pelvis with contrast along the corresponding radiologic report, several new hepatic lesions are noted on the current examination the original mass has increased in size to 2 cm when compared to prior exam, prominent increase and size in 1 month period of time is worrisome for metastasis, there is enlargement of the splenic mass present on prior exam, measuring 1.4 cm on current exam, there is moderate asymmetric right hydronephrosis increased when compared to prior exam which extends to a high density mass in the right ureter which measures 2 cm in the craniocaudal dimension as described above, this is worrisome for uroepithelial mass urologic evaluation with retrograde urethrogram is suggested. 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 narcotic medication for cancer pain. Patient after 2 enemas here in the emergency department, had bowel movement, recommend continue with MiraLAX, follow-up with urologist and PCP as well as hematology oncologist in the coming days/weeks. Discussed the results with him at the bedside, patient voiced understanding and agreement with the current treatment plan/discharge plan. Patient was given strict ED return precautions. Patient family voiced understanding and agreed with the current treatment plan/discharge plan. Critical Care Critical Care Time Critical Care Time: No
--- OUTSIDE RECORDS SUMMARY | 2025-02-01 13:35 | XMS_ITS | Clinical Summary ---
Author Organization [facility] Address [facility] [place] [address] Care Team Providers Care Personal Clothing Laundry Aide Name Role Phone Sanchez Pascual MD Primary Care Provider [phone] Source Comments This information has been disclosed [...] therelease of HIV test results or diagnoses. 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 [place] [id number] PCP - General Family Medicine 05/18/15
--- OUTSIDE RECORDS SUMMARY | 2025-02-01 13:35 | XMS_ITS | Clinical Summary ---
Author Organization [facility] [place] Address [address] [address] Phone Care Team Providers Care Technical Consultant Name Role Phone Sanchez Pascual MD Primary Care Provider Allergies No known active allergies Medications gabapentin [...] EDT Hospital Encounter [facility] MRI [address] [place] [address] Randi Morales APRN Neuromuscular dysfunction [...] (1 of 2) 2006 COVID-19 Vaccine (3 - 2024-2 6 season) 2025 09/18/2020, 08/21/2020 Influenza Vaccine (#1) 2025 06/07/2023 [...] PM CLINICAL HISTORY: N31.9-Neuromuscular dysfunction of bladder, [id number]-PNZ-17-CM G83.4-Cauda equina syndrome (HCC)-ICD-10-CM. COMPARISON: None. PROCEDURE [...] PM CLINICAL HISTORY: N31.9-Neuromuscular dysfunction of bladder, [id number]-ZJK-63-CM G83.4-Cauda equina syndrome (HCC)-ICD-10-CM. COMPARISON: None. PROCEDURE [...] Resul t from Last 3 Months Insurance [facility] CHOICE PLUS [id number] Care Teams Technical Consultant Relationship Specialty Start Date End Date Sanchez Pasucal MD [address] [place] [id number] PCP - General Family Medicine 05/04/15
--- NOTE | 2025-02-01 13:40 | CT_ITS ---
FINAL REPORT TECHNIQUE: After the administration of oral and intravenous contrast, axial images were obtained through the abdomen and pelvis by computed tomography. The study was performed with techniques to keep radiation dose as low as reasonably achievable, (ALARA). Individual dose reduction techniques using automated exposure control or adjustment of mA and/or kV according to the patient's size were employed. CLINICAL HISTORY: ABD pain, 2 weeks of constipation COMPARISON: 01/06/2025 FINDINGS: Abdomen: Mild chronic changes are present in the lung bases. There is a significant increase in size of the now 2.0 cm mass in the right lobe of the liver when compared to the prior CT of 01/06/2025. There are several new hepatic lesions noted, one of which measures 8 mm, the other 10 mm. The splenic mass now measures up to 1.4 cm in size, also increased when compared to the prior exam. The gallbladder is present. The pancreas and adrenals appear unremarkable. There are a multitude of cysts present in the left kidney, measuring up to 4.3 cm in size. There is moderate asymmetric right hydronephrosis, increased when compared to the prior exam, which extends to a high density mass in the right ureter, measures 2 cm in the craniocaudal dimension, best seen on image 38 of series 1001. The ureter measures up to 12 mm in diameter, best seen on image #66 of series 3. The aorta is normal in caliber. There is no free fluid or adenopathy. Pelvis: The appendix is not identified. The urinary bladder is unremarkable. There is no free fluid or adenopathy. A large amount of stool is present throughout the colon. IMPRESSION: Several new hepatic lesions are noted on the current examination, and the original mass has increased in size to 2 cm when compared to the prior exam. The prominent increase in size in a 1 month period of time is worrisome for metastases. There is enlargement of the splenic mass present on the prior exam, measuring 1.4 cm on the current exam. There is moderate asymmetric right hydronephrosis, increased when compared to the prior exam, which extends to a high density mass in the right ureter, which measures 2 cm in the craniocaudal dimension as described above. This is worrisome for a uroepithelial mass. Urologic evaluation with a retrograde urethrogram is suggested. Reviewed, Interpreted and Dictated by Marc Guzman MD Transcribed by Lynn Ramey Authenticated and [facility]
[2025-02-01 13:48] LABS: Hematocrit 35.1 % (42.0-52.0); Hemoglobin 12.2 g/dL (14.1-18.0); Immature Granulocytes % 0.5 %; Mean Corpuscular HGB Conc 34.8 g/dL (31.8-35.4); Mean Corpuscular Hemoglobin 30.0 pg (27.0-31.2); Mean Corpuscular Volume 86.2 fl (80-94); Nucleated Red Blood Cells % 0 %; Platelet Count 452 K/mm3 (142-424); Red Blood Count 4.07 M/mm3 (4.60-6.20); Red Cell Distribution Width-SD 42.0 fL; White Blood Count 15.2 K/mm3 (4.8-10.8)
--- NOTE | 2025-02-01 13:51 | PC.NURSE ---
Instructed pt we needed a urine sample. pt reported that he self caths himself at home. pt was informed the proper sterile procedure and teaching necessary. pt instructed he would perfer to do it himself as he does it on his own at home.
[2025-02-01] MEDS: LACTATED RINGERS 1000ML 1,000 ML 999 ML IV (13:54)
[2025-02-01 14:13] LABS: Microscopic, Urine URINE MICROSCOPIC (MICROSCOPIC)
[2025-02-01 14:16] LABS: Alanine Aminotransferase 32 U/L (12-78); Alkaline Phosphatase 155 U/L (38-126); Aspartate Amino Transferase 58 U/L (17-59); Bilirubin,Total 1.3 mg/dl (0.2-1.3); Calcium 9.2 mg/dl (8.4-10.2); Chloride 95 mmol/L (98-107); Glucose 95 mg/dl (74-100); Lipase 105 U/L (23-300); Potassium 3.8 mmoL/L (3.5-5.1); Sodium 132 mmol/L (136-145)
[2025-02-01 14:25] LABS: Color,Urine YELLOW (Yellow); Glucose,Urine (UA) Negative (Negative); Ketones,Urine 1+ (Negative); Leukocyte Esterase,Urine 2+ (Negative); PH,Urine 5.5 (5.0-8.5); Protein,Urine 1+ (Negative); Specific Gravity, Urine 1.025 (1.005-1.030); Urobilinogen,Urine 1.0 EU/dl (0.2)
[2025-02-01 14:37] LABS: Bilirubin,Urine 1+ (Negative)
[2025-02-01 14:46] LABS: Bacteria,Urine Trace /lpf; RBC,Urine 50-100 #/hpf (0-3)
[2025-02-01 14:51] LABS: Hepatitis C Ab Qual. W/ RFX NEGATIVE (Negative)
[2025-02-01] MEDS: IOPAMIDOL-370 (76%);100ML BOTTLE 75 ML IV (15:35)
[2025-02-01] MEDS: SODIUM CHLORIDE 0.9% 10ML SYR (RAD ONLY) 10 ML IV (15:35)
[2025-02-01 15:43] LABS: Albumin Level 4.3 g/dl (3.5-5.0)
[2025-02-01 15:46] LABS: Anion Gap 14.8 mEq/L (5-15); Blood Urea Nitrogen 31 mg/dl (9-20); Carbon Dioxide 26 mmol/L (22.0-30.0); Creatinine Clearance Estimated 58 mL/min (50-200); Creatinine,Serum 1.10 mg/dl (0.66-1.25); Estimated Glomerular Filt Rate 67 ml/min (>60); GFR (African American) 81 ML/MIN (>60)
[2025-02-01 15:47] LABS: Albumin/Globulin Ratio 1.5 (1.1-1.8); Globulin 2.9 g/dL (1.3-3.2); Total Protein,Serum 7.2 g/dl (6.3-8.2)
[2025-02-01] MEDS: SODIUM PHOS/BIPHOSPHATE FLEET 133ML ENEMA 133 ML RC (17:35)
--- NOTE | 2025-02-01 18:40 | PC.NURSE ---
pt had success with fleet enema. multiple BM noted
--- NOTE | 2025-02-03 22:02 | ED_ITS ---
<Statement entered by Claude Kwok MD - 02/04/25 23:23> I was consulted by the CRISTHIAN, and we discussed the complexity of the problems being addressed. I approved the treatment and management plan for this patient's care in the emergency department, thus performing a substantive portion of the medical decision making. Claude Kwok MD, CHADWICK, FACEP Discharge Plan Disposition Patient Disposition: Home, Self-Care Condition: Good Prescriptions Prescriptions: New magnesium citrate [OneLAX Magnesium Citrate] Solution 100 ml PO DAILY PRN (Reason: constipation) Qty: 296 0RF levofloxacin 750 mg tablet 750 mg PO DAILY 7 Days Qty: 7 0RF No Action cyclobenzaprine 5 mg tablet 5 mg PO Patient Comments: TAKE 1 TABLET BY MOUTH THREE TIMES A DAY tamsulosin 0.4 mg capsule 0.4 mg .ROUTE Q24H 90 Days Qty: 90 1RF Rx Instructions: Take 1/2 hour after same meal daily. ondansetron HCl 4 mg tablet 4 mg PO Q8H PRN (Reason: nausea and vomiting) Qty: 30 1RF hydrocodone-acetaminophen 5-325 mg tablet See Rx Instructions PO Q6H PRN (Reason: pain) Qty: 60 0RF Rx Instructions: 1-2 orally every 6 hours PRN; doxycycline hyclate 100 mg tablet 100 mg PO BID Qty: 42 0RF losartan 100 mg tablet See Rx Instructions .ROUTE .COMPLEX Qty: 90 1RF Dose Instruction: TAKE 1 TABLET ORALLY ONCE DAILY Rx Instructions: TAKE 1 TABLET ORALLY ONCE DAILY Referrals Follow up/Referrals: Randi Morales APRN [Primary Care Provider, Family Practice] - See instructions Ankur Fisher MD [Staff Physician, Urology] - See instructions Kevin Iniguez MD [Staff Physician, Oncology] - See instructions Activity Restrictions/Add. Instructions Additional Instructions/Restrictions: Please utilize mag citrate if your MiraLAX does not relieve your constipation, please continue take all your medication as prescribed, please follow-up with urologist and hematology oncologist as above for your ongoing mass in your bladder. Please return to the emergency department with any worsening signs or symptoms. Clinical Impressions Clinical Impression: Constipation, Neurogenic bladder, Cancer with unknown primary site Instructions Patient Instructions: Constipation, DI for Acute Abdominal Pain Print Language Print Language: Korean Discharge ED Provider: Claude Kwok General Adult HPI General Chief complaint: Abdominal Pain Stated complaint: ABD Pain Time Seen by Provider: 02/01/25 13:32 Mode of Arrival: EMS Source of Information: Patient Limitations: No Limitations History of Present Illness Onset (ago): week(s) Related Data Home Medications ?Medication ?Instructions ?Recorded ?Confirmed cyclobenzaprine 5 mg tablet 5 mg PO 01/24/25 01/26/25 Previous Rx's ?Medication ?Instructions ?Recorded doxycycline hyclate 100 mg tablet 100 mg PO BID #42 ta bs 01/05/25 ondansetron HCl 4 mg tablet 4 mg PO Q8H PRN nausea and 01/18/25 vomiting #30 tabs tamsulosin 0.4 mg capsule 0.4 mg .Route Q24H 90 days # 90 caps 01/24/25 hydrocodone 5 mg-acetaminophen 325 See Rx Instructions PO Q6H PRN 01/26/25 mg tablet pain #60 tabs magnesium citrate (OneLAX 100 ml PO DAILY PRN constipa tion 02/01/25 Magnesium Citrate oral solution) #296 mL losartan 100 mg tablet See Rx Instructions .Route 0 02/02/25 .COMPLEX #90 tabs levofloxacin 750 mg tablet 750 mg PO DAILY 7 days #7 t abs 02/03/25 Allergies Allergy/AdvReac Type Severity Reaction Status Date / Time No Known Allergies Allergy Verified 01/26/25 13:38 [facility] Disclaimer: The information contained in this section may have been updated after the patient was seen, as this information can be updated by other users. Medical History Neoplasm of pelvis Personal history of smoking Unintentional weight loss Neoplasm of uncertain behavior of scalp Screening for malignant neoplasm of colon declined (~08/10/24) Nicotine dependence, unspecified, uncomplicated HTN (hypertension) Social History Smoking Status: Current every day smoker tobacco type: cigarettes packs per day: 1 alcohol intake: never current occupational status: employed Travel in the last 8 weeks?: None Other Medical History Have you received the Pneumonia Vaccine: No ROS Obtained: Yes All systems reviewed & no additional complaints except as documented Physical Exam General General appearance: alert and in no apparent distress Respiratory Respiratory exam: Present normal lung sounds bilaterally Cardiovascular Cardiovascular exam: Present regular rate Neurological Exam Neurological exam: Present alert Medical Decision Making Medical Records Screening: Per USPSTF and CDC recommendations, given the prevalence of disease in our region, it is our hospital?s policy to screen for HIV and viral Hepatitis for all patients aged 18 and over and those with ongoing risk factors. Juan Inquiry Pt receiving controlled substance: No Vital Signs: 02/01/25 13:30 02/01/25 13:41 02/01/25 14:00 Temperature 98.3 F 98.3 F Temperature Source Oral Oral Pulse Rate 91 H Pulse Rate [Right] 91 H Respiratory Rate 15 15 20 Blood Pressure 141/81 H 108/75 L Blood Pressure [Right Arm] 141/81 H Blood Pressure Mean [Right Arm] 101 Blood Pressure Source Automatic Cuff Blood Pressure Source [Right Arm] Automatic Cuff Blood Pressure Position Supine Blood Pressure Position [Right Arm] Supine 02 Sat by Pulse Oximetry 96 96 96 Oxygen Delivery Method Room Air Room Air 02/01/25 14:30 02/01/25 15:00 02/01/25 16:00 Temperature Temperature Source Pulse Rate Pulse Rate [Right] Respiratory Rate 24 23 22 Blood Pressure 149/82 H 156/106 H 150/81 H Blood Pressure [Right Arm] Blood Pressure Mean [Right Arm] Blood Pressure Source Blood Pressure Source [Right Arm] Blood Pressure Position Blood Pressure Position [Right Arm] 02 Sat by Pulse Oximetry Oxygen Delivery Method 02/01/25 16:30 02/01/25 17:00 02/01/25 17:30 Temperature Temperature Source Pulse Rate Pulse Rate [Right] Respiratory Rate 18 15 15 Blood Pressure 149/90 H 154/99 H 159/92 H Blood Pressure [Right Arm] Blood Pressure Mean [Right Arm] Blood Pressure Source Blood Pressure Source [Right Arm] Blood Pressure Position Blood Pressure Position [Right Arm] 02 Sat by Pulse Oximetry Oxygen Delivery Method 02/01/25 18:41 Temperature 98.3 F Temperature Source Pulse Rate 90 Pulse Rate [Right] Respiratory Rate 13 Blood Pressure 159/92 H Blood Pressure [Right Arm] Blood Pressure Mean [Right Arm] Blood Pressure Source Blood Pressure Source [Right Arm] Blood Pressure Position Blood Pressure Position [Right Arm] 02 Sat by Pulse Oximetry Oxygen Delivery Method Lab Data Lab Results 02/01/25 13:28: WBC 15.2 H, RBC 4.07 L, Hgb 12.2 L, Hct 35.1 L, MCV 86.2, MCH 30.0, MCHC 34.8, RDW 13.6, Plt Count 452 H, MPV 9.3, Neut % (Auto) 88.7 H, Lymph % (Auto) 5.1 L, [place] % (Auto) 5.2, Eos % (Auto) 0.3, Baso % (Auto) 0.2, Neut # (Auto) 13.5 H, Lymph # (Auto) 0.8, [place] # (Auto) 0.8, Eos # (Auto) 0.0, Baso # (Auto) 0.0, Sodium 132 L, Potassium 3.8, Chloride 95 L, Carbon Dioxide 26, Anion Gap 14.8, BUN 31 H, Creatinine 1.10, Estimated Creat Clear 58, Estimated GFR 67, Est GFR ( Amer) 81, Glucose 95, Lactate 1.5, Calcium 9.2, Total Bilirubin 1.3, AST 58, ALT 32, Alkaline Phosphatase 155 H, Total Protein 7.2, Albumin 4.3, Globulin 2.9, Albumin/Globulin Ratio 1.5, Lipase 105, HCV Ab JOSHUA w/Rflx PCR Qn Negative, HIV Ag/Ab Combo Qual Negative 02/01/25 14:07: Urine Color Yellow, Urine Appearance Cloudy, Urine pH 5.5, Ur Specific [place] 1.025, Urine Protein 1+ A, Urine Glucose (UA) Negative, Urine Ketones 1+, Urine Blood 3+ A, Urine Nitrate Negative, Urine Bilirubin 1+ A, Urine Urobilinogen 1.0, Ur Leukocyte Esterase 2+ A, Urine RBC 50-100, Urine WBC 10-20, Ur Squamous Epith Cells None, Urine Bacteria Trace 02/01/25 13:28 02/01/25 13:28 Orders (Tests/Meds): ED MEDICATIONS Discontinued Medications Generic Name Dose Route Start Last Admin Trade Name Freq PRN Reason Stop Dose Admin Lactated Ringer's 1,000 mls @ 999 mls/hr 02/01/25 13:41 02/01/25 14:59 Lactated Ringer's 1000 Ml Bag IV 02/01/25 14:41 Infused .Q1H1M ONE Infusion Iopamidol 75 ml 02/01/25 15:34 02/01/25 15:35 Iopamidol-370 (76%);100ml Bottle IV 02/01/25 15:35 75 ml ONCE ONE Administration Mineral Oil 133 ml 02/01/25 16:56 02/01/25 18:23 Mineral Oil Enema 133ml RC 02/01/25 16:57 Not Given ONCE ONE Sodium Chloride 10 ml 02/01/25 15:34 02/01/25 15:35 Sodium Chloride 0.9% 10ml Syr (Rad Only) IV 02/01/25 15:35 10 ml ONCE ONE Administration Sodium Phosphate 133 ml 02/01/25 16:56 02/01/25 17:35 Sodium Phos/Biphosphate Fleet 133ml Enema RC 02/01/25 16:57 133 ml ONCE ONE Administration ORDERS Category Date Time Status CT abdomen pelvis w con Stat Cat Scan 02/01/25 13:40 Completed Complete Blood Count Auto Diff Stat Lab 02/01/25 13:28 Completed Comprehensive Metabolic Panel Stat Lab 02/01/25 13:28 Completed HIV Combo Stat Lab 02/01/25 13:28 Completed Hepatitis C Ab Qual. W/ RFX Stat Lab 02/01/25 13:28 Completed Lactic Acid Stat Lab 02/01/25 13:28 Completed Lipase Stat Lab 02/01/25 13:28 Completed Urinalysis and Microscopic Stat Lab 02/01/25 14:07 Completed Urine Culture Stat Micro 02/01/25 14:07 Results Medical Decision Narrative: Addendum being performed at 10:02 PM on 02/03/2025, once patient's preliminary urine culture results have been received by myself. Patient had gram-positive cocci, over 100,000 CFU's, we will call the patient and levofloxacin 750 mg p.o daily for 7 days or until urine culture results culture and sensitivity. Nursing staff will touch base with the patient on nursing rounds and call the patient with further instruction/details. Critical Care Critical Care Time Critical Care Time: No
--- NOTE | 2025-02-03 22:10 | PC.NURSE ---
Attempted to call patient and inform of medication sent to preferred pharmacy from urine results, and MD request. No answer. Unable to leave voicemail at this time.
== END 2025-02-01 18:42 | disposition home or self-care (01) ==
PROVIDERS: Physician Assistant; Emergency Provider Student in an Organized Health Care Education/Training Program; PCP Nurse Practitioner
DX: K59.00 Constipation, unspecified (principal); N31.9 Neuromuscular dysfunction of bladder, unspecified; C80.1 Malignant (primary) neoplasm, unspecified; I10 Essential (primary) hypertension; F17.210 Nicotine dependence, cigarettes, uncomplicated
CPT/HCPCS: 74177; 80053; 81001; 83605; 83690; 85025; 86803; 87086; 87088; 87186; 87389; 96360; 96361; 99285; J7120; Q9967

== ENCOUNTER 2025-02-04 11:22 | Outpatient (CLI) | payer OTHER, SELFPAY ==
--- OUTSIDE RECORDS SUMMARY | 2025-01-21 16:00 | XMS_ITS | Encounter Summary ---
Author Organization [place] [address] Care Team Providers Care Network Planner Name Role Phone Sanchez Pascual MD Primary Care Provider [phone] Reason for Referral * MRI/CAT Scan (Emergency) - Closed Specialty Diagnoses / Procedures Referred By Fide reed Referred To Contact Radiology Diagnoses Neuromuscular dysfunction of bladder Cauda equina syndrome (HCC) Procedures MRI LUMBAR SPINE W WO CONTRAST Randi Morales APRN [address] [facility] [address] [place] [address] Phone: tel: fax: Referral ID Status Reason Start Date Expiration Date Visits Re quested Visits Authorized [id number] Closed 01/19/2025 01/19/2026 1 1 Reason for Visit * MRI/CAT Scan (Emergency) - Closed Specialty Diagnoses / Procedures Referred By Fide reed Referred To Contact Radiology Diagnoses Neuromuscular dysfunction of bladder Cauda equina syndrome (HCC) Procedures MRI LUMBAR SPINE W WO CONTRAST Randi Morales EXECUTIVE CHAIRMAN [address] [facility] [address] [place] [address] Phone: tel: fax: Referral ID Status Reason Start Date Expiration Date Visits Re quested Visits Authorized [id number] Closed 01/19/2025 01/19/2026 1 1 Encounter Details Date Type Department Care Team (Latest Contact Info) Description 01/21/2025 4:00 PM EDT - 01/21/2025 11:59 PM EDT Hospital Encounter [facility] MRI [address] [place] [address] Randi Morales, EXECUTIVE CHAIRMAN [address] [place] [...] PM CLINICAL HISTORY: N31.9-Neuromuscular dysfunction of bladder, blfhqzwcedg-NNF-45-CM G83.4-Cauda equina syndrome (HCC)-ICD-10-CM. COMPARISON: None. PROCEDURE [...] PM CLINICAL HISTORY: N31.9-Neuromuscular dysfunction of bladder, mancrpnomlr-EHY-56-CM G83.4-Cauda equina syndrome (HCC)-ICD-10-CM. COMPARISON: None. PROCEDURE [...] office of the ordering clinician. Randi Morales EXECUTIVE CHAIRMAN IMG MRI ORDERABLES Final Resul t documented [...] mL documented in this encounter Care Teams Network Planner Relationship Specialty Start Date End Date Sanchez Pascual MD [address] [place] [facility] [address] [place] [phone] PCP - General Family Medicine 05/04/15 documented as of this encounter
--- NOTE | 2025-02-04 11:24 | CT_ITS ---
FINAL REPORT TECHNIQUE: After the administration of intravenous contrast, axial images through the chest were performed by computed tomography.This study was performed with techniques to keep radiation doses as low as reasonably achievable, (ALARA). Individualized dose reduction techniques using automated exposure control or adjustment of mA and/or kV according to the patient''s size were employed. CLINICAL HISTORY: Bone Cancer unitentional l weight loss pt stated he has pain on right side COMPARISON: 02/01/2025 FINDINGS: There is no axillary or mediastinal adenopathy. There is no right hilar adenopathy. There is mild dilatation of the ascending aorta measuring 3.9 cm. The heart size is normal. There is no pericardial or pleural effusion. There are changes of emphysema. There is a left suprahilar mass measuring 46 mm in axial dimension and 49 mm on coronal images. This narrows the segmental branches of the left upper pulmonary artery. There is a calcified granuloma in the left lower lobe. There are several hypodense liver lesions, largest measures 24 mm in the right lobe which was seen on prior CT concerning for metastases. There is a lytic and destructive lesion in the T8 vertebral body with pathologic fracture. Abnormal soft tissue extends outside the vertebral body. There is a second lesion within the left ninth rib at the costovertebral junction. IMPRESSION: Left suprahilar mass narrowing the segmental branches in the left upper lobe pulmonary artery concerning for malignancy until proven otherwise. Primary bronchogenic carcinoma is favored. Lytic bone lesion in T8 with soft tissue component and pathologic fracture, favor metastatic disease. Lytic lesion in the ninth rib. Reviewed, Interpreted and Dictated by Mei Ortez MD Transcribed by Lisa Castillo Authenticated and [facility]
--- OUTSIDE RECORDS SUMMARY | 2025-02-04 11:25 | XMS_ITS | Clinical Summary ---
Author Organization [facility] [place] Address [address] [address] Phone Care Team Providers Care Insulation Professional Name Role Phone Sanchez Pascual MD Primary [...] - 01/21/2025 11:59 PM EDT Hospital Encounter [facility] MRI [address] [place] [address] Randi Morales APRN Neuromuscular dysfunction [...] PM CLINICAL HISTORY: N31.9-Neuromuscular dysfunction of bladder, [id number]-KIG-22-CM G83.4-Cauda equina syndrome (HCC)-ICD-10-CM. COMPARISON: None. PROCEDURE [...] PM CLINICAL HISTORY: N31.9-Neuromuscular dysfunction of bladder, [id number]-OBB-55-CM G83.4-Cauda equina syndrome (HCC)-ICD-10-CM. COMPARISON: None. PROCEDURE [...] Resul t from Last 3 Months Insurance [facility] CHOICE PLUS [id number] Care Teams Insulation Professional Relationship Specialty Start Date End Date Sanchez Pascual MD [address] [place] [id number] PCP - General Family Medicine 05/04/15
[2025-02-04] MEDS: SODIUM CHLORIDE 0.9% 10ML SYR (RAD ONLY) 10 ML IV (11:41)
[2025-02-04] MEDS: IOPAMIDOL-370 (76%);100ML BOTTLE 75 ML IV (11:41)
== END 2025-02-04 23:59 | disposition home or self-care (01) ==
LOC: RAD 11:22
PROVIDERS: PCP Nurse Practitioner; Visit Provider Nurse Practitioner
DX: D49.89 Neoplasm of unspecified behavior of other specified sites (principal); N40.0 Benign prostatic hyperplasia without lower urinary tract symptoms; M89.9 Disorder of bone, unspecified; R91.8 Other nonspecific abnormal finding of lung field
CPT/HCPCS: 71260; Q9967

== ENCOUNTER 2025-02-10 10:16 | Outpatient (CLI) | payer OTHER, SELFPAY ==
--- OUTSIDE RECORDS SUMMARY | 2025-01-21 16:00 | XMS_ITS | Encounter Summary ---
Author Organization [place] [address] Care Team Providers Care Furniture Finisher Helper Name Role Phone Sanchez Pascual MD Primary Care Provider [phone] Reason for Referral * MRI/CAT Scan (Emergency) - Closed Specialty Diagnoses / Procedures Referred By Fide reed Referred To Contact Radiology Diagnoses Neuromuscular dysfunction of bladder Cauda equina syndrome (HCC) Procedures MRI LUMBAR SPINE W WO CONTRAST Randi Morales APRN [address] [facility] [address] [place] [address] Phone: tel: fax: Referral ID Status Reason Start Date Expiration Date Visits Re quested Visits Authorized [id number] Closed 01/19/2025 01/19/2026 1 1 Reason for Visit * MRI/CAT Scan (Emergency) - Closed Specialty Diagnoses / Procedures Referred By Fide reed Referred To Contact Radiology Diagnoses Neuromuscular dysfunction of bladder Cauda equina syndrome (HCC) Procedures MRI LUMBAR SPINE W WO CONTRAST Randi Morales LIQUEFIED NATURAL GAS PLANT OPERATOR [address] [facility] [address] [place] [address] Phone: tel: fax: Referral ID Status Reason Start Date Expiration Date Visits Re quested Visits Authorized [id number] Closed 01/19/2025 01/19/2026 1 1 Encounter Details Date Type Department Care Team (Latest Contact Info) Description 01/21/2025 4:00 PM EDT - 01/21/2025 11:59 PM EDT Hospital Encounter [facility] MRI [address] [place] [address] Randi Morales, LIQUEFIED NATURAL GAS PLANT OPERATOR [address] [place] [...] PM CLINICAL HISTORY: N31.9-Neuromuscular dysfunction of bladder, aogeorvxact-KWD-53-CM G83.4-Cauda equina syndrome (HCC)-ICD-10-CM. COMPARISON: None. PROCEDURE [...] PM CLINICAL HISTORY: N31.9-Neuromuscular dysfunction of bladder, eeynzaofjbw-OLF-83-CM G83.4-Cauda equina syndrome (HCC)-ICD-10-CM. COMPARISON: None. PROCEDURE [...] office of the ordering clinician. Randi Morales LIQUEFIED NATURAL GAS PLANT OPERATOR IMG MRI ORDERABLES Final Resul t documented [...] mL documented in this encounter Care Teams Furniture Finisher Helper Relationship Specialty Start Date End Date Sanchez Pascual MD [address] [place] [facility] [address] [place] [phone] PCP - General Family Medicine 05/04/15 documented as of this encounter
--- NOTE | 2025-02-10 10:30 | MR_ITS ---
FINAL REPORT TECHNIQUE: Multiplanar and multisequence imaging of the brain was obtained before and after contrast administration. CLINICAL HISTORY: lesions on the liver and spleen evaluation of tspine and brain for lesions. FINDINGS: Brain parenchymal: There is no mass effect or midline shift. There are bilateral periventricular and subcortical white matter changes. The cerebellum and brainstem are without acute abnormality. Ventricles: The ventricles are symmetric in size and configuration without hydrocephalus. Extra-axial spaces: No extra-axial fluid collections. Diffusion imaging: No areas of restricted diffusion to suggest acute infarct. Flow voids: Flow voids within the major intracranial vessels are preserved. Soft tissues: Soft tissues are without acute abnormality. Post contrast imaging: No abnormal enhancement. IMPRESSION: White matter changes, favor chronic small vessel ischemia. No evidence of pathologic enhancement. Reviewed, Interpreted and Dictated by Mei Ortez MD Transcribed by Lisa Castillo Authenticated and [facility]
--- OUTSIDE RECORDS SUMMARY | 2025-02-10 10:31 | XMS_ITS | Clinical Summary ---
Author Organization [facility] Address [facility] [place] [address] Care Team Providers Care Investigation Specialist Name Role Phone Sanchez Pascual MD Primary Care Provider [phone] Source Comments This information has been disclosed [...] therelease of HIV test results or diagnoses. 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 [place] [id number] PCP - General Family Medicine 05/18/15
--- OUTSIDE RECORDS SUMMARY | 2025-02-10 10:31 | XMS_ITS | Clinical Summary ---
Author Organization [facility] [place] Address [address] [address] Phone Care Team Providers Care Funeral Counselor Name Role Phone Sanchez Pascual MD Primary [...] - 01/21/2025 11:59 PM EDT Hospital Encounter [facility] MRI [address] [place] [address] Randi Morales APRN Neuromuscular dysfunction [...] PM CLINICAL HISTORY: N31.9-Neuromuscular dysfunction of bladder, [id number]-XAX-48-CM G83.4-Cauda equina syndrome (HCC)-ICD-10-CM. COMPARISON: None. PROCEDURE [...] PM CLINICAL HISTORY: N31.9-Neuromuscular dysfunction of bladder, [id number]-AAA-43-CM G83.4-Cauda equina syndrome (HCC)-ICD-10-CM. COMPARISON: None. PROCEDURE [...] Resul t from Last 3 Months Insurance [facility] CHOICE PLUS [id number] Care Teams Funeral Counselor Relationship Specialty Start Date End Date Sanchez Pascual MD [address] [place] [id number] PCP - General Family Medicine 05/04/15
--- NOTE | 2025-02-10 11:30 | MR_ITS ---
FINAL REPORT TECHNIQUE: Multiplanar MR imaging of the thoracic spine was performed with and without contrast. CLINICAL HISTORY: lesions on the liver and spleen evaluation of tspine and brain for lesions. FINDINGS: There is abnormal bone marrow signal intensity within the T8 vertebral body. There is a compression fracture involving T8 with approximately 25% loss of vertebral body height. There is bowing of the posterior cortex. There is pathologic enhancement after contrast consistent with neoplasm. There is abnormal soft tissue within the posterior left eighth rib, also likely involved with neoplasm. At the level of T8, abnormal soft tissue extends beyond the vertebral body cortex. There is mild to moderate central canal stenosis. There is extension of neoplasm into the paraspinal soft tissues. There is mass effect upon the spinal cord at this level. The remaining vertebral bodies demonstrate normal height and signal intensity. Cord signal is normal. IMPRESSION: Infiltrative process involving T8 vertebral body with pathologic fracture and extension into the paraspinal soft tissues and central canal, favor metastatic disease. Plasmacytoma is thought less likely. Reviewed, Interpreted and Dictated by Mei Ortez MD Transcribed by Lisa Castillo Authenticated and [facility]
[2025-02-10] MEDS: GADOTERIDOL INJ 20ML SYRINGE 14 ML IV (12:08)
[2025-02-10] MEDS: SODIUM CHLORIDE 0.9% 10ML SYR (RAD ONLY) 10 ML IV (12:08)
== END 2025-02-10 23:59 | disposition home or self-care (01) ==
LOC: RAD 10:16
PROVIDERS: PCP Nurse Practitioner; Visit Provider Internal Medicine Medical Oncology
DX: M48.54XA Collapsed vertebra, not elsewhere classified, thoracic region, initial encounter for fracture (principal); R90.89 Other abnormal findings on diagnostic imaging of central nervous system; D49.89 Neoplasm of unspecified behavior of other specified sites; K76.89 Other specified diseases of liver; R90.82 White matter disease, unspecified
CPT/HCPCS: 70553; 72157; A9576

== ENCOUNTER 2025-02-11 10:24 | Outpatient (CLI) | payer OTHER, SELFPAY ==
--- OUTSIDE RECORDS SUMMARY | 2025-01-21 16:00 | XMS_ITS | Encounter Summary ---
Author Organization [place] [address] Care Team Providers Care Solutions Operator Name Role Phone Sanchez Pascual MD Primary Care Provider [phone] Reason for Referral * MRI/CAT Scan (Emergency) - Closed Specialty Diagnoses / Procedures Referred By Fide reed Referred To Contact Radiology Diagnoses Neuromuscular dysfunction of bladder Cauda equina syndrome (HCC) Procedures MRI LUMBAR SPINE W WO CONTRAST Randi Morales APRN [address] [facility] [address] [place] [address] Phone: tel: fax: Referral ID Status Reason Start Date Expiration Date Visits Re quested Visits Authorized [id number] Closed 01/19/2025 01/19/2026 1 1 Reason for Visit * MRI/CAT Scan (Emergency) - Closed Specialty Diagnoses / Procedures Referred By Fide reed Referred To Contact Radiology Diagnoses Neuromuscular dysfunction of bladder Cauda equina syndrome (HCC) Procedures MRI LUMBAR SPINE W WO CONTRAST Randi Morales MARKETING OPERATIONS INTERN [address] [facility] [address] [place] [address] Phone: tel: fax: Referral ID Status Reason Start Date Expiration Date Visits Re quested Visits Authorized [id number] Closed 01/19/2025 01/19/2026 1 1 Encounter Details Date Type Department Care Team (Latest Contact Info) Description 01/21/2025 4:00 PM EDT - 01/21/2025 11:59 PM EDT Hospital Encounter [facility] MRI [address] [place] [address] Randi Morales, MARKETING OPERATIONS INTERN [address] [place] [...] PM CLINICAL HISTORY: N31.9-Neuromuscular dysfunction of bladder, nufqwvjaavz-YGB-32-CM G83.4-Cauda equina syndrome (HCC)-ICD-10-CM. COMPARISON: None. PROCEDURE [...] PM CLINICAL HISTORY: N31.9-Neuromuscular dysfunction of bladder, genqczdxrji-SZJ-74-CM G83.4-Cauda equina syndrome (HCC)-ICD-10-CM. COMPARISON: None. PROCEDURE [...] office of the ordering clinician. Randi Morales MARKETING OPERATIONS INTERN IMG MRI ORDERABLES Final Resul t documented [...] mL documented in this encounter Care Teams Solutions Operator Relationship Specialty Start Date End Date Sanchez Pascual MD [address] [place] [facility] [address] [place] [phone] PCP - General Family Medicine 05/04/15 documented as of this encounter
--- OUTSIDE RECORDS SUMMARY | 2025-02-11 10:27 | XMS_ITS | Clinical Summary ---
Author Organization [facility] Address [facility] [place] [address] Care Team Providers Care Physical Metallurgist Name Role Phone Sanchez Pascual MD Primary Care Provider [phone] Source Comments This information has been disclosed [...] therelease of HIV test results or diagnoses. [id number] Allergies No known active allergies Medications [...] 5-325 mg per tabletIndicatio ns:Oropharyngea l cancer ([facility]) Take 1-2 tablets by mouth every 6 [...] Advance Directives For more information, please contact: [phone] * Full Code (Latest Code Status on File) Date Activated Date Inactivated Comments 07/13/2015 3:42 PM 07/15/2015 4:36 PM * Full Code Date Activated Date Inactivated Comments 06/16/2015 11:12 AM 06/19/2015 4:38 PM Care Teams Physical Metallurgist Relationship Specialty Start Date End Date Sanchez Pascual MD [address] [place] [id number] PCP - General Family Medicine 05/18/15
--- OUTSIDE RECORDS SUMMARY | 2025-02-11 10:27 | XMS_ITS | Clinical Summary ---
Author Organization [facility] [place] Address [address] [address] Phone Care Team Providers Care Precision Devices Inspector/Tester Name Role Phone Sanchez Pascual MD Primary Care Provider [phone] Allergies No known active allergies Medications gabapentin [...] - 01/21/2025 11:59 PM EDT Hospital Encounter [facility] MRI [address] [place] [address] Randi Morales APRN Neuromuscular dysfunction [...] PM CLINICAL HISTORY: N31.9-Neuromuscular dysfunction of bladder, [id number]-GML-19-CM G83.4-Cauda equina syndrome (HCC)-ICD-10-CM. COMPARISON: None. PROCEDURE [...] PM CLINICAL HISTORY: N31.9-Neuromuscular dysfunction of bladder, [id number]-MLF-26-CM G83.4-Cauda equina syndrome (HCC)-ICD-10-CM. COMPARISON: None. PROCEDURE [...] Resul t from Last 3 Months Insurance [facility] CHOICE PLUS [id number] Care Teams Precision Devices Inspector/Tester Relationship Specialty Start Date End Date Sanchez Pascual MD [address] [place] [id number] PCP - General Family Medicine 05/04/15
--- NOTE | 2025-02-11 10:30 | NM_ITS ---
FINAL REPORT CLINICAL HISTORY: Liver Lesion..bone bx on friday pt has had mri and ct exam 10:30 am 27.3 mci tc MDP saline flush FINDINGS: EXISTING RELEVANT IMAGING STUDIES: Thoracic spine MRI dated 02/10/[address] abdomen and pelvis dated 02/01/2025 TECHNIQUE: The patient was injected with 27.3 mCi of technetium 99-MDP. 3 hour delayed images were obtained. There is a focus of abnormal radiotracer uptake in the mid thoracic spine slightly asymmetric to the right. There is abnormal radiotracer uptake within the left pelvis corresponding to a lytic and destructive lesion in the left iliac wing. No additional radiotracer uptake is seen on axial skeleton. There is right hydronephrosis. Soft tissue uptake is unremarkable. IMPRESSION: Abnormal radiotracer uptake in the thoracic spine and left pelvis with abnormalities on relevant exams consistent with metastatic disease. Reviewed, Interpreted and Dictated by Mei Ortez MD Transcribed by Lisa Castillo Authenticated and [facility]
[2025-02-11] MEDS: SODIUM CHLORIDE 0.9% 10ML SYR (RAD ONLY) 10 ML IV (12:48)
[2025-02-11] MEDS: ISOTOPE MDP (BONE);1 DOSE VIAL IV (12:48)
== END 2025-02-11 23:59 | disposition home or self-care (01) ==
LOC: RAD 10:24
PROVIDERS: PCP Nurse Practitioner; Visit Provider Internal Medicine Medical Oncology
DX: D49.89 Neoplasm of unspecified behavior of other specified sites (principal); K76.9 Liver disease, unspecified; R93.7 Abnormal findings on diagnostic imaging of other parts of musculoskeletal system
CPT/HCPCS: 78306; A9503

== ENCOUNTER 2025-02-14 09:42 | Outpatient (CLI) | payer OTHER, SELFPAY ==
--- OUTSIDE RECORDS SUMMARY | 2025-01-21 16:00 | XMS_ITS | Encounter Summary ---
Author Organization [place] [address] Care Team Providers Care Ladle Pourer Name Role Phone Sanchez Pascual MD Primary Care Provider [phone] Reason for Referral * MRI/CAT Scan (Emergency) - Closed Specialty Diagnoses / Procedures Referred By Fide reed Referred To Contact Radiology Diagnoses Neuromuscular dysfunction of bladder Cauda equina syndrome (HCC) Procedures MRI LUMBAR SPINE W WO CONTRAST Randi Morales APRN [address] [facility] [address] [place] [address] Phone: tel: fax: Referral ID Status Reason Start Date Expiration Date Visits Re quested Visits Authorized [id number] Closed 01/19/2025 01/19/2026 1 1 Reason for Visit * MRI/CAT Scan (Emergency) - Closed Specialty Diagnoses / Procedures Referred By Fide reed Referred To Contact Radiology Diagnoses Neuromuscular dysfunction of bladder Cauda equina syndrome (HCC) Procedures MRI LUMBAR SPINE W WO CONTRAST Randi Morales FIRE SAFETY DIRECTOR [address] [facility] [address] [place] [address] Phone: tel: fax: Referral ID Status Reason Start Date Expiration Date Visits Re quested Visits Authorized [id number] Closed 01/19/2025 01/19/2026 1 1 Encounter Details Date Type Department Care Team (Latest Contact Info) Description 01/21/2025 4:00 PM EDT - 01/21/2025 11:59 PM EDT Hospital Encounter [facility] MRI [address] [place] [address] Randi Morales, FIRE SAFETY DIRECTOR [address] [place] [address] Neuromuscular dysfunction of bladder; Cauda equina syndrome (HCC) Discharge Disposition: Home or Self Care Social History Tobacco Use Types Packs/Day Years Used Date Smoking Tobacco: Every Day Alcohol Use Standard Drinks/Week Comments No 0 (1 standard drink = 0.6 oz pur e alcohol) Sex and Gender Information Value Date Recorded Sex Assigned at Not on file Legal Sex Male 9:34 PM EDT Gender Identity Not on file Sexual Orientation Not on file documented as of this encounter Medications at Time of Discharge aspirin 325 mg Oral Tablet Take 325 mg by mouth daily. gabapentin (NEURONTIN) 600 mg Oral Tablet 04/30/2015 HYDROcodone-aceta minophen (HYCET) 7.5-325mg/15 mL Oral Solution Take 10-15 mL by mouth every 4 hours as needed for Pain. 360 mL 0 06/01/2015 ibuprofen (ADVIL;MOTRIN) 600 mg Oral Tablet 05/04/2015 losartan-hydrochl orothiazide (HYZAAR) 100-25 mg Oral Tablet 04/16/2015 omeprazole (PRILOSEC) 40 mg Oral Capsule, Delayed Release(E.C.) Take 40 mg by mouth daily. documented as of this encounter Discharge Disposition Disposition Code Departure Means Destination Home or Self Care documented in this encounter Plan of Treatment Not on file documented as of this encounter Procedures Procedure Name Priority Date/Time Associated Diagnosis Comments MRI LUMBAR SPINE W WO CONTRAST STAT 01/21/2025 5:08 PM EDT Neuromuscular dysfunction of bladder Cauda equina syndrome (HCC) documented in this encounter Results * MRI LUMBAR SPINE W WO CONTRAST (01/21/2025 5:08 PM EDT) Anatomical Region Laterality Modality Spine, L-spine Magnetic Resonan ce 01/21/2025 5:08 PM EDT Impressions 01/21/2025 5:40 PM EDT 1. Multiple marrow replacing lesions in the left iliac bone. Especially concerning is the left iliac wing lesion with findings worrisome for malignancy. Imaging follow-up with MRI pelvis and CT chest, abdomen, and pelvis with intravenous contrast advised. Clinical/oncologic follow-up required. 2. Severe central canal narrowing at L4-L5. 3. Severe left foraminal narrowing at L3-L4 and L4-L5. 4. Severe right foraminal narrowing at L5-S1. - Note: Radiology results need to be interpreted within a comprehensive clinical context. If you have questions about the radiology report, please contact the office of the ordering clinician. Narrative 01/21/2025 5:40 PM EDT MRI LUMBAR SPINE WITH AND WITHOUT CONTRAST, 01/21/2025 5:08 PM CLINICAL HISTORY: N31.9-Neuromuscular dysfunction of bladder, usbwetnisyi-VWD-07-CM G83.4-Cauda equina syndrome (HCC)-ICD-10-CM. COMPARISON: None. PROCEDURE COMMENTS: Multiplanar multisequence MR imaging of the lumbar spine before and after intravenous gadolinium contrast administration given as recorded in Epic. FINDINGS: Motion degraded study. BONES/MARROW/PARASPINAL: 5 lumbar type vertebral bodies are described. There is no lumbar vertebral body fracture or pars defect. Grade 1 degenerative anterolisthesis of L4 on L5 measures 5 mm with current positioning. Modic 1 endplate edema noted L4-L5 and L5-S1 and there is mild stress or degenerative bone marrow edema in the L5 posterior elements. Multiple marrow replacing lesions are noted in the left iliac bone. There is at an least 4.4 cm cm posterosuperior iliac bone lesion near the SI joint. There is a concerning destructive lesion in left iliac wing on the corner of the study with soft tissue mass suspected. CORD: Normal conus medullaris positioning and signal. No enhancing mass lesion or evidence of acute infectious/inflammatory process. Level by level analysis: T12-L1: Mild facet arthritis. Anterior spurring. Patent central canal and foramina. L1-L2: Mild disc bulge and facet arthritis. Mild central canal and bilateral foramina. L2-L3: Disc bulge with right central disc protrusion. Moderate facet arthritis. Moderate central canal narrowing. Mild bilateral foraminal narrowing. L3/L4: Generalized disc bulge with central disc protrusion. Moderate facet arthritis. Moderate central canal narrowing. Left facet cyst/spur present resulting in severe left foraminal narrowing. Moderate right foramina. L4-5: Disc uncovering/generalized disc bulge. Severe facet arthritis. Severe central canal narrowing. Severe left and moderate right foraminal narrowing. L5-S1: Disc degeneration with protrusion in the central and right foraminal zones. Severe facet arthritis. Moderate central canal narrowing. Severe right and mild left foraminal narrowing. OTHER: Bilateral renal cysts. Procedure Note Gus Henson MD - 01/21/2025 MRI LUMBAR SPINE WITH AND WITHOUT CONTRAST, 01/21/2025 5:08 PM CLINICAL HISTORY: N31.9-Neuromuscular dysfunction of bladder, vtrssykujuj-VFY-34-CM G83.4-Cauda equina syndrome (HCC)-ICD-10-CM. COMPARISON: None. PROCEDURE COMMENTS: Multiplanar multisequence MR imaging of the lumbarspine before and after intravenous gadolinium contrast administration given as recorded in Epic. FINDINGS: Motion degraded study. BONES/MARROW/PARASPINAL: 5 lumbar type vertebral bodies are described.There is no lumbar vertebral body fracture or pars defect. Grade 1 degenerative anterolisthesis of L4 on L5 measures 5 mm with current positioning. Modic1 endplate edema noted L4-L5 and L5-S1 and there is mild stress ordegenerative bone marrow edema in the L5 posterior elements. Multiple marrowreplacing lesions are noted in the left iliac bone. There is at an least 4.4 cm cm posterosuperior iliac bone lesion near the SI joint. There is aconcerning destructive lesion in left iliac wing on the corner of the study withsoft tissue mass suspected. CORD: Normal conus medullaris positioning and signal. No enhancing masslesion or evidence of acute infectious/inflammatory process. Level by level analysis: T12-L1: Mild facet arthritis. Anterior spurring. Patent central can[place] foramina. L1-L2: Mild disc bulge and facet arthritis. Mild central canal andbilateral foramina. L2-L3: Disc bulge with right central disc protrusion. Moderate facetarthritis. Moderate central canal narrowing. Mild bilateral foraminal narrowing. L3/L4: Generalized disc bulge with central disc protrusion. Moderatefacet arthritis. Moderate central canal narrowing. Left facet cyst/spurpresent resulting in severe left foraminal narrowing. Moderate right foramina. L4-5: Disc uncovering/generalized disc bulge. Severe facet arthritis.Severe central canal narrowing. Severe left and moderate right foraminalnarrowing. L5-S1: Disc degeneration with protrusion in the central and rightforaminal zones. Severe facet arthritis. Moderate central canal narrowing. Severeright and mild left foraminal narrowing. OTHER: Bilateral renal cysts. IMPRESSION: 1. Multiple marrow replacing lesions in the left iliac bone. Especially concerning is the left iliac wing lesion with findings worrisome formalignancy. Imaging follow-up with MRI pelvis and CT chest, abdomen, and pelvis with intravenous contrast advised. Clinical/oncologic follow-up required. 2. Severe central canal narrowing at L4-L5. 3. Severe left foraminal narrowing at L3-L4 and L4-L5. 4. Severe right foraminal narrowing at L5-S1. - Note: Radiology results need to be interpreted within a comprehensiveclinical context. If you have questions about the radiology report, please contactthe office of the ordering clinician. Randi Morales FIRE SAFETY DIRECTOR IMG MRI ORDERABLES Final Resul t documented in this encounter Visit Diagnoses Diagnosis Neuromuscular dysfunction of bladder Other functional disorder of bladder Cauda equina syndrome (HCC) Cauda equina syndrome without mention of neurogenic bladder documented in this encounter Administered Medications Inactive Administered Medications - up to 1 most recent administrations Medication Order MAR Action Action Date Dose Rate Site gadoterate meglumine (DOTAREM) solution 15 mL 15 mL, Intravenous, ONCE PRN, 1 dose, Starting on Fri01/21/25 at 1643, Until Fri01/21/25 at 1708, Radiology Procedure, VESICANT , MRI (Contrasts) Given 01/21/2025 5:08 PM EDT 15 mL sodium chloride 0.9% syringe Intravenous, ONCE PRN, 1 dose, Starting on Fri01/21/25 at 1643, Until Fri01/21/25 at 1708, Line Care, Flush peripheral lines every 12 hours, central lines every 8 hours, and after IV medication, MRI (Contrasts) Given 01/21/2025 5:08 PM EDT 10 mL documented in this encounter Care Teams Ladle Pourer Relationship Specialty Start Date End Date Sanchez Pascual MD [address] [place] [facility] [address] [place] [phone] PCP - General Family Medicine 05/04/15 documented as of this encounter
[2025-02-14] VITALS (10 sets, daily range): BP systolic 127–177; BP diastolic 68–105; PULSE 60–76; RESP 16–18; TEMP 36.1–36.6; O2SAT 95–100; BMI 26.2
--- OUTSIDE RECORDS SUMMARY | 2025-02-14 09:54 | XMS_ITS | Clinical Summary ---
Author Organization [facility] [place] Address [address] [address] Phone Care Team Providers Care Access Clerk Name Role Phone Sanchez Pascual MD [...] - 01/21/2025 11:59 PM EDT Hospital Encounter [facility] MRI [address] [place] [address] Randi Morales APRN Neuromuscular dysfunction [...] PM CLINICAL HISTORY: N31.9-Neuromuscular dysfunction of bladder, juzsmudoqrn-QDQ-33-CM G83.4-Cauda equina syndrome (HCC)-ICD-10-CM. COMPARISON: None. PROCEDURE [...] PM CLINICAL HISTORY: N31.9-Neuromuscular dysfunction of bladder, tyqzusxwdyv-DLP-49-CM G83.4-Cauda equina syndrome (HCC)-ICD-10-CM. COMPARISON: None. PROCEDURE [...] Resul t from Last 3 Months Insurance [facility] CHOICE PLUS [id number] Care Teams Access Clerk Relationship Specialty Start Date End Date Sanchez Pascual MD [address] [place] [phone] PCP - General Family Medicine 05/04/15
--- OUTSIDE RECORDS SUMMARY | 2025-02-14 09:54 | XMS_ITS | Clinical Summary ---
Author Organization [facility] Address [facility] [place] [address] Care Team Providers Care Meat Products Demonstrator Name Role Phone Sanchez Pascual MD Primary Care Provider [phone] Source Comments This information has been disclosed [...] therelease of HIV test results or diagnoses. [id number] Allergies No known active allergies Medications [...] 5-325 mg per tabletIndicatio ns:Oropharyngea l cancer ([facility]-H[facility]) Take 1-2 tablets by mouth every 6 [...] Advance Directives For more information, please contact: [phone] * Full Code (Latest Code Status on File) Date Activated Date Inactivated Comments 07/13/2015 3:42 PM 07/15/2015 4:36 PM * Full Code Date Activated Date Inactivated Comments 06/16/2015 11:12 AM 06/19/2015 4:38 PM Care Teams Meat Products Demonstrator Relationship Specialty Start Date End Date Sanchez Pascual MD [address] [place] [id number] PCP - General Family Medicine 05/18/15
--- NOTE | 2025-02-14 10:30 | CT_ITS ---
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 ATTENDING RADIOLOGIST: Dr. Billings. PHYSICIAN ASSURANCE MANAGER INSURANCE: Keo Brown PA-C. PROCEDURE: After informed consent was obtained and a time-out was performed, the patient was prepped and draped in usual sterile fashion over the left pelvis. Utilizing local anesthesia and sterile technique with a coaxial system, access to lesion was obtained under direct CT guidance. A total of 4 separate 33 mm 18-gauge core biopsies were obtained. Postbiopsy films demonstrate no evidence of acute complication. The patient received moderate conscious sedation. The patient tolerated the procedure well and left the department in good condition. CONSCIOUS SEDATION: 2 mg of IV Versed and 50 mcg of Fentanyl were administered. Continuous vital sign monitoring was used. An RN was present during the sedation process. Overall sedation time was 15 minutes. IMPRESSION: Status post CT guided core biopsy of left iliac bone without immediate complication. Reviewed, Interpreted and Dictated by Johan Billings MD Transcribed by ROBIN Land Authenticated and [facility]
[2025-02-14 11:03] LABS: INR 1.07 (0.9-1.1); Prothrombin Time 11.8 seconds (10.1-12.5)
--- NOTE | 2025-02-14 12:28 | PC.NURSE ---
meal tray ordered for pt
== END 2025-02-14 13:29 | disposition home or self-care (01) ==
PROVIDERS: PCP Nurse Practitioner; Visit Provider Internal Medicine Medical Oncology
DX: C80.1 Malignant (primary) neoplasm, unspecified (principal); D49.89 Neoplasm of unspecified behavior of other specified sites
CPT/HCPCS: 20220; 77012; 85610; 99152; J2250; J3010

== ENCOUNTER 2025-02-23 14:18 | Emergency (ER) | payer OTHER, SELFPAY ==
--- OUTSIDE RECORDS SUMMARY | 2025-01-21 16:00 | XMS_ITS | Encounter Summary ---
Author Organization [place] [address] Care Team Providers Care Report Clerk Name Role Phone Sanchez Pascual MD Primary Care Provider Reason for Referral * MRI/CAT Scan (Emergency) - Closed Specialty Diagnoses / Procedures Referred By Fide reed Referred To Contact Radiology Diagnoses Neuromuscular dysfunction of bladder Cauda equina syndrome (HCC) Procedures MRI LUMBAR SPINE W WO CONTRAST Randi Morales APRN 12[address] [facility] [address] [place] [address] Phone: tel: fax: Referral ID Status Reason Start Date Expiration Date Visits Re quested Visits Authorized [id number] Closed 01/19/2025 01/19/2026 1 1 Reason for Visit * MRI/CAT Scan (Emergency) - Closed Specialty Diagnoses / Procedures Referred By Fide reed Referred To Contact Radiology Diagnoses Neuromuscular dysfunction of bladder Cauda equina syndrome (HCC) Procedures MRI LUMBAR SPINE W WO CONTRAST Randi Morales MAINTENANCE PAINTER [address] [facility] [address] [place] [address] Phone: tel: fax: Referral ID Status Reason Start Date Expiration Date Visits Re quested Visits Authorized [id number] Closed 01/19/2025 01/19/2026 1 1 Encounter Details Date Type Department Care Team (Latest Contact Info) Description 01/21/2025 4:00 PM EDT - 01/21/2025 11:59 PM EDT Hospital Encounter [facility] MRI [address] [place] [address] Randi Morales, MAINTENANCE PAINTER [address] [place] [...] PM CLINICAL HISTORY: N31.9-Neuromuscular dysfunction of bladder, oylwynveuyy-LLE-85-CM G83.4-Cauda equina syndrome (HCC)-ICD-10-CM. COMPARISON: None. PROCEDURE [...] PM CLINICAL HISTORY: N31.9-Neuromuscular dysfunction of bladder, owgczqgjlnk-EQT-19-CM G83.4-Cauda equina syndrome (HCC)-ICD-10-CM. COMPARISON: None. PROCEDURE [...] office of the ordering clinician. Randi Morales MAINTENANCE PAINTER IMG MRI ORDERABLES Final Resul t documented [...] mL documented in this encounter Care Teams Report Clerk Relationship Specialty Start Date End Date Sanchez Pascual MD [address] [place] [facility] [address] [place] [phone] PCP - General Family Medicine 05/04/15 documented as of this encounter
[2025-02-23] VITALS (10 sets, daily range): BP systolic 103–142; BP diastolic 57–79; PULSE 58–83; RESP 13–24; TEMP 36.8; O2SAT 96–98; BMI 21.5
--- NOTE | 2025-02-23 14:23 | CT_ITS ---
PROCEDURE INFORMATION: Exam: CT Head Without Contrast Exam date and time: 02/23/2025 5:23 PM Age: 69 years old Clinical indication: Weakness, extremity; Bilateral; Additional info: Weakness, history of malignancy TECHNIQUE: Imaging protocol: Computed tomography of the head without contrast. Radiation optimization: All CT scans at this facility use at least one of these dose optimization techniques: automated exposure control; mA and/or kV adjustment per patient size (includes targeted exams where dose is matched to clinical indication); or iterative reconstruction. COMPARISON: MR HEAD/BRAIN WO/W CON 02/10/2025 10:42 AM FINDINGS: Brain: The brain demonstrates mild, generalized volume loss. No hemorrhage or edema seen. Cerebral ventricles: The ventricles are stable, mildly enlarged in keeping with volume loss. Paranasal sinuses: Visualized sinuses are unremarkable. No fluid levels. Mastoid air cells: Visualized mastoid air cells are well aerated. Bones: No acute fracture seen. Prominent pannus like degenerative changes at C1-C2 causing mild high cervical central spinal canal stenosis. Soft tissues: Unremarkable. IMPRESSION: No acute intracranial abnormality seen.
--- NOTE | 2025-02-23 14:25 | CT_ITS ---
PROCEDURE INFORMATION: Exam: CT Cervical Spine With Contrast Exam date and time: 02/23/2025 5:25 PM Age: 69 years old Clinical indication: Injury or trauma; Fall; Blunt trauma; Additional info: Fall, malignancy workup generalized weakness TECHNIQUE: Imaging protocol: Computed tomography of the cervical spine with contrast. Radiation optimization: All CT scans at this facility use at least one of these dose optimization techniques: automated exposure control; mA and/or kV adjustment per patient size (includes targeted exams where dose is matched to clinical indication); or iterative reconstruction. Contrast material: ISO 370; Contrast volume: 75 ml; Contrast route: INTRAVENOUS (IV); COMPARISON: NM BONE SCAN WHOLE BODY 02/11/2025 1:10 PM FINDINGS: Bones: Left petroclival and occipital lytic osseous metastatic disease extending into the left occipital condyle. Tumor at left skull base could encase the V3 segment of the left vertebral artery. Grossly enhancement of the cisternal left vertebral artery remains preserved implying patency/flow distal to the tumor. Trace 1-2 mm of grade 1 degenerative anterolisthesis of C2 on C3. 1-2 mm of degenerative retrolisthesis of C3 on C4 and C5 on C6. An osteolytic metastasis in the left aspect of C4 extending into the transverse process. Likely extraosseous tumor posteriorly displacing the left vertebral artery at this level. Disc height loss and spondylosis is marked at C5-C6 and C6-C7. Prominent pannus like degenerative changes at C1-C2. High cervical spinal canal stenosis appears mild in degree probably present mostly on the basis of C1-C2 degenerative changes, though some impingement upon left anterolateral epidural space due to tumor may be present. Degenerative central spinal canal stenoses at C5-C6 and C6-C7 are likely moderate in degree. There are levels of cervical foraminal narrowing due to uncovertebral and facet arthropathy. Lungs: The lung apices appear emphysematous. Vasculature: Carotid atherosclerosis, in particular considerable proximal left ICA soft plaque causing at least severe and potentially critical stenosis. Soft tissues: No acute findings. Asymmetrically prominent soft tissue density of the right hemitongue probably related to left hemitongue atrophy. The patient does have tumor/osteolytic metastatic disease involving the left hypoglossal canal region. IMPRESSION: 1. No cervical spine fracture seen. 2. Please correlate with findings on visual inspection to exclude a right hemitongue mass. The appearance of asymmetric soft tissue density is probably related to atrophy of the left hemitongue. 3. There is left skull base osseous metastatic disease extending into the left occipital condyle. 4. Lytic metastatic disease involving left C4 extending into the transverse process. Extraosseous tumor posteriorly displaces the left vertebral artery. Tumor may encase the left vertebral artery at the skull base in the V3 segment. 5. Soft plaque causing a segmental severe versus critical stenosis of the left ICA approximately 1.8 cm from the origin. THIS REPORT CONTAINS FINDINGS THAT MAY BE CRITICAL TO PATIENT CARE. The finch findings were verbally communicated via telephone conference with Lane Hunter at 7:09 PM EDT on 02/23/2025. The findings were acknowledged and understood.
--- NOTE | 2025-02-23 14:26 | CT_ITS ---
PROCEDURE INFORMATION: Exam: CT Thoracic Spine With Contrast Exam date and time: 02/23/2025 5:25 PM Age: 69 years old Clinical indication: Injury or trauma; Other: Fall, malignancy workup generalized weakness TECHNIQUE: Imaging protocol: Computed tomography of the thoracic spine with contrast. Radiation optimization: All CT scans at this facility use at least one of these dose optimization techniques: automated exposure control; mA and/or kV adjustment per patient size (includes targeted exams where dose is matched to clinical indication); or iterative reconstruction. Contrast material: ISOVUE; Contrast volume: 75 ml; Contrast route: IV; COMPARISON: 1. MR THORACIC SPINE WO/W CON 02/10/2025 10:42 AM 2. 02/04/[address] FINDINGS: Bones/joints: Lytic metastasis and pathologic compression fracture in the T8 vertebra with 45% vertebral body height loss, increased from 30% on 02/10/2025. Retropulsion of the vertebral body cortex is not significantly changed, measuring 5-6 mm. However, the soft tissue component of the metastatic lesion appears to extend further into the spinal canal than it did on 02/10/2025 MRI, resulting in severe spinal canal stenosis and approximately 75% effacement of the spinal canal at this level. The lytic lesion extends into the left pedicle, similar prior exam. Posterior spinal column remains intact. There are no new lytic lesions in the thoracic spine. Lytic lesion in the posterior left 9th rib is slightly increased in size from 02/10/2025 MRI, now 3.1 x 2.2 cm compared with 2.3 x 1.8 cm on the prior exam and measured in similar dimensions. Soft tissues: Unremarkable. Lungs: Left suprahilar mass is partially visualized, and not significantly changed from 02/04/[address] Please refer to prior report for details. IMPRESSION: 1. Compared with 02/10/2025 MRI, the pathologic fracture in T8 has increased vertebral body height loss and the soft tissue component of the lytic lesion in the T8 vertebral body extends further into the spinal canal resulting in severe spinal canal stenosis and approximately 75% effacement of the spinal canal at this level. No evidence of new metastatic bone lesions in the thoracic spine. 2. Lytic lesion in the posterior left 9th rib is also slightly increased in size from 02/10/2025 MRI.
--- NOTE | 2025-02-23 14:26 | CT_ITS ---
PROCEDURE INFORMATION: Exam: CT Lumbar Spine With Contrast Exam date and time: 02/23/2025 5:25 PM Age: 69 years old Clinical indication: Injury or trauma; Other: Fall, malignancy workup generalized weakness TECHNIQUE: Imaging protocol: Computed tomography of the lumbar spine with contrast. Radiation optimization: All CT scans at this facility use at least one of these dose optimization techniques: automated exposure control; mA and/or kV adjustment per patient size (includes targeted exams where dose is matched to clinical indication); or iterative reconstruction. Contrast material: ISOVUE; Contrast volume: 75 ml; Contrast route: IV; COMPARISON: NM BONE SCAN WHOLE BODY 02/11/2025 1:10 PM FINDINGS: Bones/joints: There are 5 [id number] vertebral bodies in the lumbar spine. Round 1.5 cm lucent bone lesion L2 vertebral body consistent with metastatic disease, increased from 1.0 cm on 02/01/2025 CT abdomen/pelvis. There is also a new focal defect in the adjacent inferior endplate of L2 that likely represents extension of the tumor into the intervertebral disc space at L2-L3. The posterior cortex remains intact. No evidence of pathologic fracture or significantly decreased disc space. An expansile 9-10 cm bone metastasis previously demonstrated in the left iliac crest on 02/01/2025 CT is not included in the CT image [id number], but can be seen on the [employer] image and also appears to have increased in size by approximately 1-2 cm in each dimension. A lytic lesion in the posterior left iliac wing has increased in size, now measuring 5.0 x 3.4 cm compared with 4.3 x 3.0 cm 02/01/2025 when measured in similar dimensions. Stepwise grade 1 anterolisthesis from L4-S1, unchanged from prior exam. No pars defects. Multi-level degenerative disc disease and degenerative facet hypertrophy results in variable degrees spinal canal stenosis and neuroforaminal narrowing, also unchanged. Spinal canal stenosis is greatest at L4-L5 for degree of stenosis is moderate to severe. There is also moderate to severe bilateral neuroforaminal narrowing at L4-L5, as well as on the left at L3-L4. No evidence of acute fracture. Intraperitoneal space: Findings in the partially visualized abdominal compartment are not significantly changed from 02/01/2025 CT. Please refer to prior report for details. Soft tissues: Unremarkable. IMPRESSION: 1. A 1.5 cm lytic bone metastasis in the L2 vertebral body has increased in size from 1.0 cm since 02/01/2025 CT abdomen/pelvis. No evidence of pathologic fracture. 2. A 5.0 cm lytic lesion in the posterior left iliac wing is also increased in size. 3. An expansile 9-10 cm bone metastasis previously demonstrated in the left iliac crest on 02/01/2025 CT is not included in the CT image [id number] on this exam, but can be seen on the [employer] image and also appears to have increased in size by approximately 1-2 cm in each dimension. 4. Multi-level degenerative changes, as above.
--- NOTE | 2025-02-23 14:28 | ED_ITS ---
<Statement entered by Abi Astudillo DO - 02/24/25 16:31> I was consulted by the CRISTHIAN, and we discussed the complexity of problems being addressed. I approve the treatment and management plan for this patient's care in the emergency department, thus performing a substantial portion of the medical decision making. Abi Astudillo DO <Statement entered by George Pal MD - 02/24/25 12:45> I was consulted by the CRISTHIAN, and we discussed the complexity of the problems being addressed. I approve the treatment and management plan for this patient's care in the emergency department, thus performing a substantive portion of the medical decision making. George Pal MD Discharge Plan Disposition Patient Disposition: Xfer Other Condition: Good Prescriptions Prescriptions: No Action ondansetron HCl 4 mg tablet 4 mg PO Q8H PRN (Reason: nausea and vomiting) Qty: 30 1RF dexamethasone 4 mg tablet 4 mg PO TID Qty: 90 0RF tamsulosin 0.4 mg capsule 0.4 mg .ROUTE Q24H 90 Days Qty: 90 1RF Rx Instructions: Take 1/2 hour after same meal daily. losartan 100 mg tablet See Rx Instructions .ROUTE .COMPLEX Qty: 90 1RF Dose Instruction: TAKE 1 TABLET ORALLY ONCE DAILY Rx Instructions: TAKE 1 TABLET ORALLY ONCE DAILY cyclobenzaprine 5 mg tablet 5 mg PO TID Qty: 90 0RF morphine 30 mg tablet extended release 30 mg PO Q12H Qty: 60 0RF hydrocodone-acetaminophen 10-325 mg tablet See Rx Instructions PO Q6H PRN (Reason: pain) Qty: 90 0RF Rx Instructions: 1-2 orally every 6 hours PRN; magnesium citrate [OneLAX Magnesium Citrate] Solution 100 ml PO DAILY PRN (Reason: constipation) Qty: 296 0RF levofloxacin 750 mg tablet 750 mg PO DAILY 7 Days Qty: 7 0RF Referrals Follow up/Referrals: Provider,Referral, [Referring, Medical] - See instructions Clinical Impressions Clinical Impression: Metastatic cancer to spine, Leg weakness, bilateral, Neurogenic bladder Print Language Print Language: Estonian Discharge ED Provider: George Pal General Adult HPI General Chief complaint: Weakness Stated complaint: Weakness Time Seen by Provider: 02/23/25 14:18 Mode of Arrival: EMS Source of Information: Patient and Medical Record Limitations: No Limitations History of Present Illness HPI narrative: 69-year-old male presents to the emergency department via EMS for several day history of generalized weakness, patient reports multiple falls/near falls, over the last 5 days/week, patient endorses bilateral lower extremity weakness as well as numbness and tingling , but denies any radicular symptomatology, denies any neck pain, with his recent falls he denies striking the head, the mid back or the lower back, he denies any saddle anesthesia, does utilize self catheter for BPH, daily, denies any fever chills chest pain does not due to shortness of breath are somewhat common for him, does have ongoing rib pain and mid thoracic back pain, patient [place] any abdominal pain constipation no diarrhea, no dysuria, no hematuria melena hematochezia or hematemesis, patient is a current everyday smoker, denies any alcohol or drug use, patient has diffuse malignancy, primary site thought to be 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 3 times daily dexamethasone, muscle relaxers, extended release morphine and hydrocodone for his pain control, last dose of his hydrocodone therapy was around noon today. Initial triage vitals are unremarkable. Please note that above description of symptoms, in this electronic medical record under categorization of recalled from ER triage doctor by RN are reflective of an initial nursing assessment, however, is not reflective of my full history and physical exam that was personally taken and clarified. Consequentially, this preceding description of symptoms, which may include the patient's categorized chief complaint in the EMR, do not reflect my personal clinical impression, and the ultimate description of history of present illness and patient stated complaints should be deferred to this section of the note. Unless stated otherwise or congruent with this section of the note, additional signs, symptoms, or incongruence should be interpreted as inaccurate with my clinical impression. Onset (ago): day(s) Related Data Previous Rx's ?Medication ?Instructions ?Recorded ondansetron HCl 4 mg tablet 4 mg PO Q8H PRN nausea and 01/18/25 vomiting #30 tabs magnesium citrate (OneLAX 100 ml PO DAILY PRN constipa tion 02/01/25 Magnesium Citrate oral solution) #296 mL losartan 100 mg tablet See Rx Instructions .Route 0 02/02/25 .COMPLEX #90 tabs levofloxacin 750 mg tablet 750 mg PO DAILY 7 days #7 t abs 02/03/25 dexamethasone 4 mg tablet 4 mg PO TID #90 tabs 5 cyclobenzaprine 5 mg tablet 5 mg PO TID #90 tabs 02/14 hydrocodone 10 mg-acetaminophen See Rx Instructions PO Q6H PRN 02/21/25 325 mg tablet pain #90 tabs morphine 30 mg tablet,extended 30 mg PO Q12H #60 tabs 02/21/25 release tamsulosin 0.4 mg capsule 0.4 mg .Route Q24H 90 days # 90 caps 02/21/25 Allergies Allergy/AdvReac Type Severity Reaction Status Date / Time No Known Allergies Allergy Verified 02/21/25 10:07 [facility] Disclaimer: The information contained in this section may have been updated after the patient was seen, as this information can be updated by other users. Medical History Neoplasm of pelvis Personal history of smoking Unintentional weight loss Neoplasm of uncertain behavior of scalp Screening for malignant neoplasm of colon declined (~08/10/24) Nicotine dependence, unspecified, uncomplicated HTN (hypertension) Surgical History History of cardiac catheterization Family History Other No significant family history Social History Smoking Status: Current every day smoker tobacco type: cigarettes packs per day: 1 alcohol intake: never current occupational status: employed Travel in the last 8 weeks?: None Have you lived/traveled outside US in past 30 days?: No Contact w/someone who lives/traveled outside US past 30 days?: No Exposure to someone with infectious disease in past 14 days?: No Do you have a fever (greater than 100.4 F or 38 C)?: No Have you tested positive for COVID-19?: No Exposed to someone with COVID-19 in past 14 days?: No Do you have a sore throat?: No Do you have a cough?: No Do you have any weakness?: Yes Do you have any diarrhea?: No Are you experiencing any unusual bleeding?: No Do you have any muscle aches/pain?: No Do you have any abdominal pain?: No Are you experiencing loss of taste or smell?: No Other Medical History Have you received the Pneumonia Vaccine: No ROS Obtained: Yes All systems reviewed & no additional complaints except as documented Physical Exam General General appearance: alert and in no apparent distress Head Head exam: atraumatic and normocephalic Eye Eye exam: Present PERRL and EOMI ENT ENT exam: Present mucous membranes moist Neck Neck exam: Present normal inspection Chest Chest inspection: Present normal inspection and symmetric chest wall rise Respiratory Respiratory exam: Present wheezes and other (Diffuse wheezes noted bilaterally); Absent normal lung sounds bilaterally or respiratory distress Cardiovascular Cardiovascular exam: Present regular rate and normal rhythm Abdominal Exam Abdominal exam: Present soft; Absent tenderness, guarding, rebound or rigidity Extremities Exam Extremities exam: Present normal inspection, full ROM and other (Neurovascularly intact throughout moving extremities to command); Absent tenderness Neurological Exam Neurological exam: Present alert, oriented X3 and other (Global generalized weakness noted, moves extremities to command, has some difficulty lifting the left leg off the bed, no gross sensation deficit, physical deconditioning noted, and bilateral lower extremities, negative Angelito sign bilaterally, good strength in the upper extremities, no thoracic s) Psychiatric Psychiatric exam: Present normal affect Skin Skin exam: Present warm, dry and other (1+ pitting edema noted bilaterally left lower extremity slightly worse than right) Medical Decision Making Medical Records Medical records reviewed: Yes I reviewed the patient's medical records. Screening: Per USPSTF and CDC recommendations, given the prevalence of disease in our region, it is our hospital?s policy to screen for HIV and viral Hepatitis for all patients aged 18 and over and those with ongoing risk factors. Juan Inquiry Pt receiving controlled substance: Yes Juan was queried for this patient: No Risks and benefits of using a controlled substance: were discussed with pt by me Vital Signs: 02/23/25 14:26 02/23/25 14:55 02/23/25 15:00 Temperature 98.2 F Temperature Source Oral Pulse Rate 64 58 L Pulse Rate [Left Radial] 70 Respiratory Rate 20 22 13 Blood Pressure 137/69 122/78 Blood Pressure [Right Arm] 130/65 Blood Pressure Mean 78 91 Blood Pressure Mean [Right Arm] 86 02 Sat by Pulse Oximetry 98 98 97 Oxygen Delivery Method Room Air 02/23/25 15:30 02/23/25 16:00 02/23/25 16:32 Temperature Temperature Source Pulse Rate 62 79 73 Pulse Rate [Left Radial] Respiratory Rate 24 18 14 Blood Pressure 124/76 142/79 H 109/66 L Blood Pressure [Right Arm] Blood Pressure Mean 93 89 92 Blood Pressure Mean [Right Arm] 02 Sat by Pulse Oximetry 96 97 98 Oxygen Delivery Method 02/23/25 17:00 02/23/25 18:00 02/23/25 18:30 Temperature Temperature Source Pulse Rate 75 83 80 Pulse Rate [Left Radial] Respiratory Rate 19 Blood Pressure 103/59 L 106/65 L 110/57 L Blood Pressure [Right Arm] Blood Pressure Mean 79 75 76 Blood Pressure Mean [Right Arm] 02 Sat by Pulse Oximetry 98 97 98 Oxygen Delivery Method Lab Data Lab results reviewed: Yes I reviewed the patient's lab results. Lab Results 02/23/25 14:50: WBC 26.7 H*, RBC 3.96 L, Hgb 12.0 L, Hct 35.4 L, MCV 89.4, MCH 30.3, MCHC 33.9, RDW 15.9, Plt Count 364, MPV 8.9, Neut % (Auto) 90.9 H, Lymph % (Auto) 1.4 L, Woodson % (Auto) 4.5, Eos % (Auto) 0.0 L, Baso % (Auto) 0.2, Neut # (Auto) 24.3 H, Lymph # (Auto) 0.4 L, Woodson # (Auto) 1.2 H, Eos # (Auto) 0.0, Baso # (Auto) 0.1, Total Counted 100, Neutrophils % (Manual) 93 H, Lymphocytes % (Manual) 2 L, Monocytes % (Manual) 3, Myelocytes % 2 H, Platelet Estimate Normal, Polychromasia 1+, Poikilocytosis 1+, Target Cells 1+, Ovalocytes 1+, S odium 129 L, Potassium 4.5, Chloride 96 L, Carbon Dioxide 30, Anion Gap 7.5, BUN 38 H, Creatinine 0.80, Estimated Creat Clear 68, Estimated GFR 96, Est GFR ( Amer) 116, Glucose 94, Lactate 1.5, Uric Acid 4.0, Calcium 8.6, Magnesium 2.0, Total Bilirubin 0.7, AST 47, ALT 35, Alkaline Phosphatase 81, T otal Creatine Kinase 33 L, NT-Pro-B Natriuret Pep 470 H, Total Protein 6.2 L, Albumin 3.6, Globulin 2.6, Albumin/Globulin Ratio 1.4 02/23/25 15:58: Urine Color Yellow, Urine Appearance Clear, Urine pH 6.5, Ur Specific [place] <= 1.005, Urine Protein Negative, Urine Glucose (UA) Negative, Urine Ketones Negative, Urine Blood Trace-i, Urine Nitrate Negative, Urine Bilirubin Negative, Urine Urobilinogen 0.2, Ur Leukocyte Esterase Trace, Urine RBC Occasional, Urine WBC None, Ur Squamous Epith Cells None, Urine Bacteria None 02/23/25 14:50 02/23/25 14:50 Orders (Tests/Meds): ED MEDICATIONS Generic Name Dose Route Start Last Admin Trade Name Frefloyd PRN Reason Stop Dose Admin Sodium Chloride 10 ml 02/23/25 17:32 02/23/25 17:33 Sodium Chloride 0.9% 10ml Syr (Rad Only) IV 03/25/25 17:31 10 ml NEEDED PRN Administration Maintain IV Site Discontinued Medications Generic Name Dose Route Start Last Admin Trade Name Freq PRN Reason Stop Dose Admin Hydromorphone HCl 0.5 mg 02/23/25 21:27 02/23/25 21:44 Hydromorphone 2mg/Ml Syringe IV 02/23/25 21:28 0.5 mg ONCE ONE Administration Iopamidol 75 ml 02/23/25 17:32 02/23/25 17:33 Iopamidol-370 (76%);100ml Bottle IV 02/23/25 17:33 75 ml ONCE ONE Administration Sodium Chloride 50 ml 02/23/25 17:32 02/23/25 17:33 0.9 % Sodium Chloride 50 Ml Vial IV 02/23/25 17:33 Not Given ONCE ONE ORDERS Category Date Time Status CT cervical spine w con Stat Cat Scan 02/23/25 14:[address] head/brain wo con Stat Cat Scan 02/23/25 14:[address] lumbar spine w con Stat Cat Scan 09/24/25 14:[address] thoracic spine w con Stat Cat Scan 02/23/25 14:26 Completed CK [Creatine Kinase] Stat Lab 02/23/25 14:50 Completed Complete Blood Count Auto Diff Stat Lab 02/23/25 14:50 Completed Comprehensive Metabolic Panel Stat Lab 02/23/25 14:50 Completed Lactic Acid Stat Lab 02/23/25 14:50 Completed Magnesium Stat Lab 02/23/25 14:50 Completed NT Pro Brain Natriuretic Pep. Stat Lab 02/23/25 14:50 Completed Uric Acid Stat Lab 02/23/25 14:50 Completed Urinalysis and Microscopic Stat Lab 02/23/25 15:58 Completed Medical Decision Narrative: 69-year-old male presents to the emergency department via EMS for generalized weakness differential diagnose include but not limited to, cardiac arrhythmia, electrolyte disturbance, acute hypovolemia, acute kidney injury, metastatic spread to spine, malignancy, physical deconditioning, rhabdomyolysis, failure to thrive, among others. I discussed this patient's case with the attending physician Dr. Quinones Will obtain basic laboratory studies, EKG, CK level lactic acid level magnesium level proBNP uric acid level and UA, also obtain CT head without contrast, CT cervical spine with contrast CT T-spine and L-spine with contrast for further evaluation/characterization. I prior to patient's arrival at approximately 2:10 PM discussed this patient's case with the hematology oncologist on-call and patient's hematology oncologist Dr. Iniguez. He believes that the patient has had physical deconditioning and decline rather quickly, feels to be more aggressive form of cancer, pending current treatment options, would recommend workup in the emergency department, with better pain control, as well as potential hospice consultation. CBC notable for leukocytosis 26.7, could be due to ongoing malignancy/ongoing chronic steroid use. Otherwise stable CBC. Mild hyponatremia at 129, BUN mildly elevated at 38 total CK level unremarkable, magnesium level unremarkable, lactic acid level unremarkable. proBNP mildly evaded at 470 otherwise unremarkable, uric acid level unremarkable. UA is notable for trace hematuria negative nitrites, trace leukocyte esterase otherwise unremarkable UA. I reviewed the patient's CT head without contrast on the corresponding radiologic report, no acute intracranial abnormality is seen Addendum for CT head without contrast was reviewed, at 7:02 PM, there is left skull base and cervical spine osseous metastatic disease reported separately please see separate CT cervical spine report. I reviewed the patient's CT cervical spine without contrast along with corresponding radiologic report, I also was able to speak with Dr. Paiz at approximately 1709 p.m., there is no cervical spine fracture seen, please correlate with findings on visual inspection to include right hemitongue mass the appearance is asymmetric soft tissue density is probable related to atrophy of left hematoma, there is left skull base osseous metastatic disease extending to the left occipital condyle, lytic metastatic disease involving left C4 extended transverse process, intraosseous tumor posteriorly displaces left vertebral artery, tumor may encase the left vertebral artery at the skull base in the V3 segment, soft plaque causing a segmental severe versus critical stenosis of the left ICA approximately 1.8 cm from the origin I reviewed the patient's CT thoracic spine with contrast along the corresponding radiologic report, compared to February 10, 2025 MRI the pathological fracture and T8 has increased vertebral body height has lost a soft tissue component lytic lesion T8 vertebral body extends further into the spinal canal resulting in severe spinal canal stenosis to proximal 75% effacement the spinal canal at this level, no evidence of pneumostatic bone lesions in thoracic body, lytic lesion the posterior left ninth ribs also slightly increased from size from 911 MRI. I discussed this patient's case with the on-call hematology oncologist (patient's oncologist), Dr. Iniguez at approximate 7:30 PM, he would recommend discussing treatment options with the patient, potential transfer to higher level of care with radiation oncology and neurosurgery evaluation/consultation due to new cervical spine thoracic spine and skull base findings. I reviewed the patient's CT lumbar with contrast along with corresponding radiologic report, 1.5 cm lytic bone metastases in the L2 vertebral body has increased in size from 1 cm in January 2025, no evidence of pathological fracture, 5 cm lytic lesion in the posterior left iliac wing also increased in size, and expansile 9 to 10 cm bone metastasis previously demonstrated the left iliac crest, is not included on CT image [id number], but can be seen on [facility] imaging, also open. Increased in size by approximately 2 cm in each dimension. Discussed this patient's case with the transfer physician/hospitalist physician at approximately 8:26 PM, he will place the patient on a waiting list, he would also like me to discuss this patient's case with neurosurgery prior to transfer. They will page neurosurgery and I will discuss patient's case with them. Discussed this patient's case with Elham Piña PA-C at approximately 8:40 PM, she accepts on behalf of of the attending neurosurgery physician , who will see the patient in consultation, patient is pending transport/bed availability at [facility], would like me to send patient with all imaging studies today as well as outpatient thoracic and brain MRIs. Discussed need for transfer with the patient and with the bedside patient and family are in agreement with current treatment plan/transfer plan, neurosurgery would like me to keep the patient n.p.o., n.p.o. starting now, patient is complaining of some pain, will give 0.5 mg IV Dilaudid. I discussed this patient's case with the attending physician Dr. Astudillo at shift change, she will be assuming admitted the patient's care, disposition is pending transfer to [facility] for higher level of care. Patient was accepted and has a bed available pending EMS transport. Critical Care Critical Care Time Critical Care Time: No
--- OUTSIDE RECORDS SUMMARY | 2025-02-23 14:34 | XMS_ITS | Clinical Summary ---
Author Organization [facility] Address [address] [address] Phone Care Team Providers Care Care Services Manager Name Role Phone Sanchez Pascual MD Primary [...] - 01/21/2025 11:59 PM EDT Hospital Encounter [facility] MRI [address] [place] [address] Randi Morales APRN Neuromuscular dysfunction [...] PM CLINICAL HISTORY: N31.9-Neuromuscular dysfunction of bladder, [id number] G83.4-Cauda equina syndrome (HCC)-ICD-10-CM. COMPARISON: None. PROCEDURE [...] PM CLINICAL HISTORY: N31.9-Neuromuscular dysfunction of bladder, [id number]-CM G83.4-Cauda equina syndrome (HCC)-ICD-10-CM. COMPARISON: None. PROCEDURE [...] Resul t from Last 3 Months Insurance [facility] CHOICE PLUS [id number] Care Teams Care Services Manager Relationship Specialty Start Date End Date Sanchez Pascual MD [address] [place] [id number] PCP - General Family Medicine 05/04/15
--- OUTSIDE RECORDS SUMMARY | 2025-02-23 14:34 | XMS_ITS | Clinical Summary ---
Author Organization [facility] Address [facility] [place] [address] Care Team Providers Care Garage Worker Name Role Phone Sanchez Pascual MD Primary Care Provider [phone] Source Comments This information has been disclosed [...] therelease of HIV test results or diagnoses. 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 [place] [id number] PCP - General Family Medicine 05/18/15
--- NOTE | 2025-02-23 14:35 | ECG_ITS ---
APPROVED REPORT Exam: Resting ECG HR:58 bpm ECG Measurements Heart Rate 58 AXES MA 160 P 63 QRSd 117 QRS -2 QT 400 T 64 QTc 397 Conclusion SINUS BRADYCARDIA MODERATE INTRAVENTRICULAR CONDUCTION DELAY [110+ ms QRS DURATION] BORDERLINE ECG UNCONFIRMED REPORT Sinus bradycardia. No ST elevation or depression. Electronically signed by : CHERELLE GAMEZ, 02/23/2025 15:22:34
[2025-02-23 15:05] LABS: Hematocrit 35.4 % (42.0-52.0); Hemoglobin 12.0 g/dL (14.1-18.0); Immature Granulocytes % 3.0 %; Mean Corpuscular HGB Conc 33.9 g/dL (31.8-35.4); Mean Corpuscular Hemoglobin 30.3 pg (27.0-31.2); Mean Corpuscular Volume 89.4 fl (80-94); Nucleated Red Blood Cells % 0 %; Platelet Count 364 K/mm3 (142-424); Red Blood Count 3.96 M/mm3 (4.60-6.20); Red Cell Distribution Width-SD 52.1 fL; White Blood Count 26.7 K/mm3 (4.8-10.8)
[2025-02-23 15:19] LABS: Alanine Aminotransferase 35 U/L (12-78); Albumin Level 3.6 g/dl (3.5-5.0); Albumin/Globulin Ratio 1.4 (1.1-1.8); Alkaline Phosphatase 81 U/L (38-126); Anion Gap 7.5 mEq/L (5-15); Aspartate Amino Transferase 47 U/L (17-59); Bilirubin,Total 0.7 mg/dl (0.2-1.3); Blood Urea Nitrogen 38 mg/dl (9-20); Calcium 8.6 mg/dl (8.4-10.2); Carbon Dioxide 30 mmol/L (22.0-30.0); Chloride 96 mmol/L (98-107); Creatine Kinase 33 U/L (55-170); Creatinine Clearance Estimated 68 mL/min (50-200); Creatinine,Serum 0.80 mg/dl (0.66-1.25); Estimated Glomerular Filt Rate 96 ml/min (>60); GFR (African American) 116 ML/MIN (>60); Globulin 2.6 g/dL (1.3-3.2); Glucose 94 mg/dl (74-100); Magnesium 2.0 mg/dl (1.6-2.3); Potassium 4.5 mmoL/L (3.5-5.1); Sodium 129 mmol/L (136-145); Total Protein,Serum 6.2 g/dl (6.3-8.2)
[2025-02-23 15:21] LABS: Uric Acid 4.0 mg/dl (3.5-8.5)
[2025-02-23 15:32] LABS: NT Pro Brain Natriuretic Pep. 470 pg/mL (0-125)
[2025-02-23 15:45] LABS: Ovalocytes 1+; Poikilocytosis 1+; Polychromasia 1+; Target Cells 1+; Total Cells Counted 100
--- NOTE | 2025-02-23 15:57 | PC.NURSE ---
regular tray ordered for this pt
[2025-02-23 15:59] LABS: Microscopic, Urine URINE MICROSCOPIC (MICROSCOPIC)
[2025-02-23 16:07] LABS: Bilirubin,Urine Negative (Negative); Color,Urine YELLOW (Yellow); Glucose,Urine (UA) Negative (Negative); Ketones,Urine Negative (Negative); Leukocyte Esterase,Urine TRACE (Negative); PH,Urine 6.5 (5.0-8.5); Protein,Urine Negative (Negative); Specific Gravity, Urine <= 1.005 (1.005-1.030); Urobilinogen,Urine 0.2 EU/dl (0.2)
[2025-02-23 16:32] LABS: RBC,Urine Occasional #/hpf (0-3)
[2025-02-23] MEDS: IOPAMIDOL-370 (76%);100ML BOTTLE 75 ML IV (17:33)
[2025-02-23] MEDS: SODIUM CHLORIDE 0.9% 10ML SYR (RAD ONLY) 10 ML IV (17:33)
--- NOTE | 2025-02-23 20:13 | PC.NURSE ---
rounded on pt, pt does not need anything at this time. call light within reach. vilma at bedside
--- NOTE | 2025-02-23 20:13 | PC.NURSE ---
Called [facility] for a transfer. stated they would call back
[2025-02-23] MEDS: HYDROMORPHONE 2MG/ML SYRINGE 0.5 MG IV (21:44)
--- NOTE | 2025-02-23 22:27 | PC.NURSE ---
Spoke with EMS about transfer. they will be up here shortly.
--- NOTE | 2025-02-23 22:27 | PC.NURSE ---
report called to Hortensia HERNANDEZ at [facility]
== END 2025-02-23 22:52 | disposition other institution (70) ==
PROVIDERS: Physician Assistant; Emergency Provider Student in an Organized Health Care Education/Training Program; PCP Nurse Practitioner
DX: R06.2 Wheezing (principal); D72.829 Elevated white blood cell count, unspecified; M62.81 Muscle weakness (generalized); E87.1 Hypo-osmolality and hyponatremia; R60.0 Localized edema; N31.9 Neuromuscular dysfunction of bladder, unspecified; C79.51 Secondary malignant neoplasm of bone; C34.90 Malignant neoplasm of unspecified part of unspecified bronchus or lung; F17.210 Nicotine dependence, cigarettes, uncomplicated; I10 Essential (primary) hypertension
CPT/HCPCS: 70450; 72126; 72129; 72132; 80053; 81001; 82550; 83605; 83735; 83880; 84550; 85007; 85025; 93005; 96374; 99285; J1171; Q9967